=== PATIENT | male | born 1945 | race Caucasian/White ===

== ENCOUNTER 2018-01-17 15:33 | Inpatient (IN) | payer OTHER ==
[~2018-01-17] VITALS: Ht 182.9 cm; Wt 100.4 kg
[2018-01-17 16:03] LABS: BASO % 0.1 %; BASO ABS # 0.01 K/uL (0-0.2); EOS % 2.8 %; EOS ABS # 0.25 K/uL (0-0.5); HEMOGLOBIN 15.2 g/dL (14.0-18.0); IG# 0.02 K/uL (0.00-0.02); LYMPH % 18.8 %; LYMPH ABS # 1.71 K/uL (1.2-3.4); MEAN CELL VOLUME 93.9 fL (80-100); MEAN CORPUSCULAR HEMOGLOBIN 33.2 pg (25-34); MEAN CORPUSCULAR HGB CONC 35.3 g/dl (32-36); MEAN PLATELET VOLUME 10.5 fL (7.4-10.4); MONO % 7.7 %; NEUT % 70.4 %; NEUT ABS # 6.39 K/uL (1.4-6.5); PLATELET COUNT 214 K/uL (130-400); RED CELL DISTRIBUTION WIDTH CV 12.8 % (11.5-14.5); RED CELL DISTRIBUTION WIDTH SD 43.9 fL (36.4-46.3); WHITE BLOOD COUNT 9.08 K/uL (4.8-10.8)
--- NOTE | 2018-01-17 16:15 | DIAGNOSTIC IMAGING REPORT ---
CHEST 2 VIEWS ROUTINE CLINICAL HISTORY: palpitations COMPARISON STUDY: 06/08/2015 FINDINGS: The heart is normal in size. There is no failure. There is no focal pulmonary consolidation. There are no pleural effusions. There is a calcified granuloma within the right lung apex.[ IMPRESSION: No active disease in the chest. Electronically signed by: Ross Raymond M.D. 01/17/2018 4:14 PM Dictated Date/Time: 01/17/2018 4:13 PM
[2018-01-17] MEDS ORDERED: SODIUM CHLORIDE 0.9% 1000ML 1,000 ML IV ONE (16:19)
[2018-01-17 16:29] LABS: ALBUMIN 3.6 gm/dl (3.4-5.0); ALT/SGPT 26 U/L (12-78); AST/SGOT 23 U/L (15-37); BLOOD UREA NITROGEN 20 mg/dl (7-18); CALCIUM 8.5 mg/dl (8.5-10.1); CARBON DIOXIDE 23 mmol/L (21-32); CREATININE 1.02 mg/dl (0.60-1.40); GLUCOSE 149 mg/dl (70-99); SODIUM 139 mmol/L (136-145)
[2018-01-17 16:37] LABS: ALKALINE PHOSPHATASE 67 U/L (45-117)
[2018-01-17] MEDS ORDERED: ADENOSINE IV SOLN 3 MG/ML 2 ML VIAL IV STA (17:01)
[2018-01-17] MEDS ORDERED: DILTIAZEM BOLUS / DRIP IV STA ×2 (17:16→17:36)
[2018-01-17] MEDS ORDERED: DILTIAZEM BOLUS FROM BAG IV ONE (17:30)
[2018-01-17] MEDS ORDERED: DILTIAZEM HCL INJ 125 MG in DEXTROSE 5% 100ML IV PRN (17:30)
[2018-01-17] MEDS ORDERED: ALUMINUM/MAGNESIUM/SIMETH (MAALOX MAX) 30 ML UDC PO PRN (17:45)
[2018-01-17] MEDS ORDERED: ZOLPIDEM TARTRATE 5 MG TAB PO PRN (17:45)
[2018-01-17] MEDS ORDERED: ONDANSETRON INJ 2 MG/ML 2 ML VIAL IV PRN (17:45)
[2018-01-17] MEDS ORDERED: POLYETHYLENE (MIRALAX) 17 GM PACK PO PRN (17:45)
[2018-01-17] MEDS ORDERED: MAGNESIUM HYDROXIDE SUSP 30 ML UDC PO PRN (17:45)
[2018-01-17] MEDS ORDERED: ACETAMINOPHEN 325 MG TAB PO PRN (17:45)
[2018-01-17] MEDS ORDERED: MoRPHine SULFATE 2 MG/ML CARP IV PRN (17:45)
[2018-01-17 17:51] LABS: PTT PATIENT 28.5 SECONDS (21.0-31.0)
--- NOTE | 2018-01-17 17:54 | EMERGENCY ROOM VISIT NOTE ---
History Report prepared by Barby: Stefani Barclay Under the Supervision of: Dr. Delbert Rodriguez M.D. First contact with patient: 15:40 Chief Complaint: TACHYCARDIA Stated Complaint: PULSE 130 History of Present Illness The patient is a 72 year old male who presents to the Emergency Room with complaints of sudden tachycardia beginning at 0800 this morning. He states that his heart was racing about 130 beats per minute during triage. 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 He notes he drinks a lot of coffee and drank alcohol last night. He regularly takes Lisinopril. Source of History: patient Onset: 0800 this morning Position: chest Quality: other ("like his heart skipped a beat") Timing: other (sudden) Associated Symptoms: No fevers, No chills, No cough, No chest pain, No SOB Note: Negative recent illnesses or history of thyroid issues Review of Systems See HPI for pertinent positives and negatives. A total of ten systems were reviewed and were otherwise negative. Past Medical & Surgical Medical Problems: (1) No significant past medical history (2) Tachycardia Family History No pertinent family history Social History Smoking Status: Current Some Day Smoker Marital Status: Housing Status: lives with significant other Occupation Status: retired Physical Exam Vital Signs Date Time Temp Pulse Resp B/P (MAP) Pulse Ox O2 Delivery O2 Flow Rate FiO2 01/17/18 17:43 134 19 124/100 01/17/18 17:26 60 01/17/18 16:37 133 16 105/84 95 Room Air 01/17/18 15:58 134 17 126/84 95 Room Air 01/17/18 15:57 135 01/17/18 15:55 96 Room Air 01/17/18 15:45 96 Room Air 01/17/18 15:36 36.8 135 18 131/89 96 Room Air Physical Exam GENERAL: Awake, alert, well-appearing, in no distress HENT: Normocephalic, atraumatic. Oropharynx unremarkable. EYES: Normal conjunctiva. Sclera non-icteric. NECK: Supple. No nuchal rigidity. RESPIRATORY: Clear to auscultation. No wheezes. Normal respiratory effort. CARDIAC: Tachycardic rate. Normal rhythm. Extremities warm and well perfused. GI: Soft, non-distended. No tenderness to palpation. No rebound or guarding. No masses. RECTAL: Deferred. MUSCULOSKELETAL: Atraumatic. Chest examination reveals no tenderness. There is no CVA tenderness to palpation. LOWER EXTREMITIES: Calves are equal size bilaterally and non-tender. No edema NEURO: Normal sensorium. No sensory or motor deficits noted. No facial droop. SKIN: Warm and dry. No rash or jaundice noted. Medical Decision & Procedures ER Provider Diagnostic Interpretation: Radiology results as stated below per my review and radiologist interpretation: CHEST 2 VIEWS ROUTINE CLINICAL HISTORY: palpitations COMPARISON STUDY: 06/08/2015 FINDINGS: The heart is normal in size. There is no failure. There is no focal pulmonary consolidation. There are no pleural effusions. There is a calcified granuloma within the right lung apex.[ IMPRESSION: No active disease in the chest. Electronically signed by: Ross Raymond M.D. 01/17/2018 4:14 PM Laboratory Results 01/17/18 15:52 Red Blood Count 4.58, Mean Corpuscular Volume 93.9, Mean Corpuscular Hemoglobin 33.2, Mean Corpuscular Hemoglobin Concent 35.3, Mean Platelet Volume 10.5, Neutrophils (%) (Auto) 70.4, Lymphocytes (%) (Auto) 18.8, Monocytes (%) (Auto) 7.7, Eosinophils (%) (Auto) 2.8, Basophils (%) (Auto) 0.1, Neutrophils # (Auto) 6.39, Lymphocytes # (Auto) 1.71, Monocytes # (Auto) 0.70, Eosinophils # (Auto) 0.25, Basophils # (Auto) 0.01 01/17/18 15:52 Test 01/17/18 15:52 White Blood Count 9.08 K/uL (4.8-10.8) Red Blood Count 4.58 M/uL (4.7-6.1) Hemoglobin 15.2 g/dL (14.0-18.0) Hematocrit 43.0 % (42-52) Mean Corpuscular Volume 93.9 fL (80-100) Mean Corpuscular Hemoglobin 33.2 pg (25-34) Mean Corpuscular Hemoglobin Concent 35.3 g/dl (32-36) Platelet Count 214 K/uL (130-400) Mean Platelet Volume 10.5 fL (7.4-10.4) Neutrophils (%) (Auto) 70.4 % Lymphocytes (%) (Auto) 18.8 % Monocytes (%) (Auto) 7.7 % Eosinophils (%) (Auto) 2.8 % Basophils (%) (Auto) 0.1 % Neutrophils # (Auto) 6.39 K/uL (1.4-6.5) Lymphocytes # (Auto) 1.71 K/uL (1.2-3.4) Monocytes # (Auto) 0.70 K/uL (0.11-0.59) Eosinophils # (Auto) 0.25 K/uL (0-0.5) Basophils # (Auto) 0.01 K/uL (0-0.2) RDW Standard Deviation 43.9 fL (36.4-46.3) RDW Coefficient of Variation 12.8 % (11.5-14.5) Immature Granulocyte % (Auto) 0.2 % Immature Granulocyte # (Auto) 0.02 K/uL (0.00-0.02) D-Dimer 420 ug/L FEU (0-500) Anion Gap 10.0 mmol/L (3-11) Est Creatinine Clear Calc Drug Dose 81.6 ml/min Estimated GFR () 85.3 Estimated GFR (Non- 73.6 BUN/Creatinine Ratio 20.0 (10-20) Calcium Level 8.5 mg/dl (8.5-10.1) Magnesium Level 2.0 mg/dl (1.8-2.4) Total Bilirubin 0.4 mg/dl (0.2-1) Direct Bilirubin 0.1 mg/dl (0-0.2) Aspartate Amino Transf (AST/SGOT) 23 U/L (15-37) Alanine Aminotransferase (ALT/SGPT) 26 U/L (12-78) Alkaline Phosphatase 67 U/L (45-117) Troponin I < 0.015 ng/ml (0-0.045) Total Protein 7.0 gm/dl (6.4-8.2) Albumin 3.6 gm/dl (3.4-5.0) Thyroid Stimulating Hormone (TSH) 0.969 uIu/ml (0.300-4.500) Chemistry Specimen Hemolysis Laboratory results reviewed by me Medications Administered Medications (Trade) Dose Ordered Sig/Felipe Route Start Time Stop Time Status Last Admin Dose Admin Sodium Chloride 1,000 ml @ 999 mls/hr Q1H1M ONCE IV 01/17/18 16:19 01/17/18 17:19 DC 01/17/18 16:19 999 MLS/HR Adenosine (Adenosine Iv) 6 mg NOW STAT IV 01/17/18 17:01 01/17/18 17:02 DC 01/17/18 17:17 6 MG Diltiazem HCl (Cardizem Bolus From Bag) 5 mg NOW ONCE IV 01/17/18 17:30 01/17/18 17:31 DC 01/17/18 17:42 5 MG Diltiazem HCl 125 mg/Dextrose 125 ml @ 0 mls/hr Q0M PRN IV 01/17/18 17:30 02/16/18 17:29 01/17/18 17:39 5 MLS/HR ECG Per My Interpretation Indication: tachycardia Rate (beats per minute): 135 Rhythm: sinus tachycardia Findings: left axis deviation, other (no ST segment elevation or depression, V1 and V2 T-wave flattening) Comparison ECG Date: 11/09/15 Change: V1 and V2 T-wave flattening and tachycardia are new compared to prior ED Course 1541: The patient was evaluated in room B6. A complete history and physical exam was performed. 1619: Ordered Sodium Chloride 1000 ml @ 999 mls/hr IV 1645: Reevaluated the patient and informed of laboratory results and x-ray results. Patient continues to be symptomatic but persistently nonvariable tachycardic. 1655: Discussed the patient's case with Dr. Cordon, Cardiology. He states this is likely atrial tachycardia. He recommends adenosine or beta ervin for further evaluation. 1701: Ordered Adenosine 6 mg IV 1716: Ordered Cardizem Bolus From Bag 5 mg IV 1738: Discussed the patient's case with Dr. Castanon, [facility] Hospitalist. The patient will be evaluated for further treatment and disposition. Medical Decision Triage Nursing notes reviewed. Differential diagnosis: Etiologies such as premature contractions, electrolyte abnormality, cardiac dysrhythmia, thyroid dysfunction, pulmonary embolism, infection, gastrointestinal, as well as others were entertained. Patient presents with reported tachycardia the unit this morning. Takes blood pressure daily noted fairly consistently around 30. Was able to go on exercise and has no complaints of chest pain or shortness of breath. Did recently travel back several weeks ago from [place] via car and airplane. No leg swelling. No abdominal pain. No history of thyroid dysfunction. Does endorse a fair amount of caffeine daily. States he just that was on his heart rate was fairly consistently fast today so came in. Denies fever. Does not appear infected. No evidence of acute ischemia. Chest x-ray is normal. No evidence of thyroid dysfunction. Electrolytes okay. Negative troponin. Given recent travel d-dimer was completed and within normal limits. Appears to be a sinus tachycardia on initial EKG but not variable concern for possible underlying atrial tachycardia. Discussed with cardiology gave adenosine 6 mg which revealed an atrial flutter with block. Given some diltiazem and started on heparin for anticoagulation. Will admit for further cardiac evaluation/ consultation and rhythm conversion. Medication Reconcilliation Current Medication List: was personally reviewed by me Blood Pressure Screening Patient's blood pressure: Normal blood pressure Blood pressure disposition: Did not require urgent referral Consults Time Called: 1650 Consulting Physician: Dr. Cordon, Cardiology Returned Call: 1651 Discussed the patient's case with Dr. Cordon, Cardiology. He states this is likely atrial tachycardia. He recommends adenosine or beta ervin for further evaluation. Additional Consults: Time Called: 1720 Consulted Physician: Dr. Castanon, [facility] Hospitalist Returned Call: 2215 Additional Comments: Discussed the patient's case with Dr. Castanon, [facility] Hospitalist. The patient will be evaluated for further treatment and disposition. Impression Primary Impression: Atrial flutter Critical Care I have personally spent greater than 33 minutes of critical care time in the direct management of this patient. This includes bedside care, interpretation of diagnostic studies, and testing, discussion with consultants, patient, and family members, and other required patient management activities. This 33 minutes is in excess of all separately billable procedures. Scribe Attestation The scribe's documentation has been prepared under my direction and personally reviewed by me in its entirety. I confirm that the note above accurately reflects all work, treatment, procedures, and medical decision making performed by me. Departure Information Dispostion Being Evaluated By Hospitalist (Dr. Castanon, [facility] Hospitalist) Referrals Cam Connor MD (PCP) Patient Instructions My [facility] Problem Qualifiers Primary Impression: Atrial flutter Atrial flutter type: unspecified Qualified Codes: I48.92 - Unspecified atrial flutter
[2018-01-17] MEDS ORDERED: PATIENT'S ALLERGY INFO NEEDS ENTERED SCH (18:00)
[2018-01-17] MEDS ORDERED: LISI-729 PO (18:00)
[2018-01-17] MEDS ORDERED: HEPARIN SOD (PORCINE) 1000 UNIT/ML 10 ML VIAL IV ONE (18:00)
--- NOTE | 2018-01-17 18:02 | History and Physical ---
History & Physical Date & Time of Service: Jan 17, 2018 at 17:51 Chief Complaint: Pulse 130 Primary Care Physician: Cam Connor MD History of Present Illness Source: patient, hospital records, other 72 y/o M Hx HTN. Developed a rapid HR at approximately 8am. This persisted until he eventually presented to the ER 8 hours later. An initial EKG appeared to show sinus tachycardia at a rate of 130. Adenosine was administered and atrial flutter became apparent. At no time did the pt develop CP, SOB or lightheadedness. He states that his regular HR is approximately 60. Past Medical/Surgical History HTN Family History No pertinent family history Mother at age 100, father - history of CAD Social History The pt has an alcoholic beverage daily. He states he drink plenty of coffee. He smokes 2-3 pipes or cigars weekly. He works for a [employer]. Smoking Status: Current Some Day Smoker Review of Systems Constitutional: No fever, No chills, No sweats Eyes: No worsening of vision ENT: No hearing loss, No nasal symptoms Respiratory: No cough, No wheezing Cardiovascular: + palpitations, No chest pain, No orthopnea, No PND Abdomen: No pain, No nausea, No vomiting Musculoskeletal: No joint pain Genitourinary - Male: No hematuria, No dysuria, No urinary frequency Neurologic: No memory loss, No weakness Psychiatric: No depression symptoms Endocrine: No fatigue Hematologic / Lymphatic: No abnormal bleeding/bruising Integumentary: No rash Allergic / Immunologic: No environmental allergies Physical Exam Vital Signs Date Time Temp Pulse Resp B/P (MAP) Pulse Ox O2 Delivery O2 Flow Rate FiO2 01/17/18 17:26 60 01/17/18 16:37 133 16 105/84 95 Room Air 01/17/18 15:58 134 17 126/84 95 Room Air 01/17/18 15:57 135 01/17/18 15:55 96 Room Air 01/17/18 15:45 96 Room Air 01/17/18 15:36 36.8 135 18 131/89 96 Room Air General Appearance: WD/WN, no apparent distress Head: normocephalic ENT: normal ENT inspection, pharynx normal Neck: supple, no JVD Respiratory/Chest: chest non-tender, lungs clear, normal breath sounds Cardiovascular: no gallop, no murmur, + tachycardia Abdomen/GI: normal bowel sounds, non tender, soft Back: normal inspection, no CVA tenderness Extremities/Musculoskelatal: normal inspection, no calf tenderness, normal capillary refill 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, no motor/sensory deficits, alert, oriented x 3 Skin: normal color Diagnostics Laboratory Results Results Past 24 Hours Test 01/17/18 15:52 Range/Units White Blood Count 9.08 4.8-10.8 K/uL Red Blood Count 4.58 4.7-6.1 M/uL Hemoglobin 15.2 14.0-18.0 g/dL Hematocrit 43.0 42-52 % Mean Corpuscular Volume 93.9 80-100 fL Mean Corpuscular Hemoglobin 33.2 25-34 pg Mean Corpuscular Hemoglobin Concent 35.3 32-36 g/dl Platelet Count 214 130-400 K/uL Mean Platelet Volume 10.5 7.4-10.4 fL Neutrophils (%) (Auto) 70.4 % Lymphocytes (%) (Auto) 18.8 % Monocytes (%) (Auto) 7.7 % Eosinophils (%) (Auto) 2.8 % Basophils (%) (Auto) 0.1 % Neutrophils # (Auto) 6.39 1.4-6.5 K/uL Lymphocytes # (Auto) 1.71 1.2-3.4 K/uL Monocytes # (Auto) 0.70 0.11-0.59 K/uL Eosinophils # (Auto) 0.25 0-0.5 K/uL Basophils # (Auto) 0.01 0-0.2 K/uL RDW Standard Deviation 43.9 36.4-46.3 fL RDW Coefficient of Variation 12.8 11.5-14.5 % Immature Granulocyte % (Auto) 0.2 % Immature Granulocyte # (Auto) 0.02 0.00-0.02 K/uL D-Dimer 420 0-500 ug/L FEU Sodium Level 139 136-145 mmol/L Potassium Level 4.0 3.5-5.1 mmol/L Chloride Level 105 98-107 mmol/L Carbon Dioxide Level 23 21-32 mmol/L Anion Gap 10.0 3-11 mmol/L Blood Urea Nitrogen 20 7-18 mg/dl Creatinine 1.02 0.60-1.40 mg/dl Est Creatinine Clear Calc Drug Dose 81.6 ml/min Estimated GFR () 85.3 Estimated GFR (Non- 73.6 BUN/Creatinine Ratio 20.0 10-20 Random Glucose 149 70-99 mg/dl Calcium Level 8.5 8.5-10.1 mg/dl Magnesium Level 2.0 1.8-2.4 mg/dl Total Bilirubin 0.4 0.2-1 mg/dl Direct Bilirubin 0.1 0-0.2 mg/dl Aspartate Amino Transf (AST/SGOT) 23 15-37 U/L Alanine Aminotransferase (ALT/SGPT) 26 12-78 U/L Alkaline Phosphatase 67 45-117 U/L Troponin I < 0.015 0-0.045 ng/ml Total Protein 7.0 6.4-8.2 gm/dl Albumin 3.6 3.4-5.0 gm/dl Thyroid Stimulating Hormone (TSH) 0.969 0.300-4.500 uIu/ml Chemistry Specimen Hemolysis EKG Atrial flutter observed following administration of adenosine - no evidence of ischemia Impression Assessment and Plan 72 y/o M Hx HTN. Developed a rapid HR at approximately 8am. This persisted until he eventually presented to the ER 8 hours later. An initial EKG appeared to show sinus tachycardia at a rate of 130. Adenosine was administered and atrial flutter became apparent. At no time did the pt develop CP, SOB or lightheadedness. The pt is placed on Diltiazem and Heparin. We will obtain an echo and request a cardiology consult. We have held his Lisinopril to allow for rate agents as needed. He will be kept NPO after midnight in the event that he requires AM cardioversion. Full code - Heparin prophylaxis Total time for this admit including review of labs, meds, imaging, records - discussion with pt and ER attending - 33 min Resuscitation Status VTE Prophylaxis Will order VTE Prophylaxis: Yes
[2018-01-17] MEDS: HEPARIN 25,000 UNIT/500ML D5W 500 ML IV SCH (18:03)
[2018-01-17] MEDS ORDERED: MULT-190 PO (18:11)
[2018-01-17] MEDS ORDERED: MULT-506 PO (18:12)
[2018-01-17] MEDS ORDERED: FEXO1TAB49 PO (18:13)
[2018-01-17] MEDS ORDERED: VNTHFA/IN INH (18:14)
[2018-01-17] MEDS ORDERED: FLVHFA44 INH (18:15)
[2018-01-17] MEDS ORDERED: METHPOW7 PO (18:19)
[2018-01-17 18:54] VITALS: BP 150/106; PULSE 136; TEMP 36.6; O2SAT 97; Ht 182.9 cm; Wt 100.4 kg
[2018-01-17 23:18] VITALS: BP 96/63; PULSE 65; TEMP 36.7; O2SAT 92
[2018-01-18 01:08] LABS: PTT PATIENT 86.1 SECONDS (21.0-31.0)
[2018-01-18 04:17] VITALS: BP 100/64; PULSE 84; TEMP 36.4; O2SAT 95
[2018-01-18 07:27] LABS: HEMATOCRIT 39.7 % (42-52); HEMOGLOBIN 13.8 g/dL (14.0-18.0); MEAN CORPUSCULAR HEMOGLOBIN 32.3 pg (25-34); MEAN CORPUSCULAR HGB CONC 34.8 g/dl (32-36); MEAN PLATELET VOLUME 10.5 fL (7.4-10.4); PLATELET COUNT 195 K/uL (130-400); RED CELL DISTRIBUTION WIDTH CV 12.9 % (11.5-14.5); RED CELL DISTRIBUTION WIDTH SD 43.6 fL (36.4-46.3)
[2018-01-18 07:47] LABS: PTT PATIENT 67.8 SECONDS (21.0-31.0)
[2018-01-18 07:48] VITALS: BP 113/74; PULSE 63; TEMP 36.4; O2SAT 94
--- NOTE | 2018-01-18 09:26 | ECHOCARDIOGRAM REPORT ---
*NOTICE TO RECEIVING [employer] This information is strictly Confidential and protected under [place] law. [place] law prohibits you from making any further disclosure of this information unless further disclosure is expressly permitted by the written consent of the person to whom it pertains or is authorized by law. A general authorization for the release of medical or other information is not sufficient for this purpose. Hospital accepts no responsibility if the information is made available to any other person, INCLUDING THE PATIENT. Interpretation Summary * Name: PATRICIA MEEHAN Study Date: 01/18/2018 06:34 AM BP: 100/64 mmHg * Patient Location: C.2T\S\S229\S\2 HR: 62 * : 1945 (M/d/yyyy) Gender: Male Height: 69 in * Age: 72 yrs Ethnicity: CA Weight: 221 lb * Ordering Physician: Kevyn Castanon * Referring Physician: Self, Referred * Performed By: Jg Bernal RDCS * * Reason For Study: A-flutter * BSA: 2.2 m2 * -- Conclusions -- * The left ventricle is normal in size. * There is mild concentric left ventricular hypertrophy. * Left ventricular systolic function is normal. * Ejection Fraction = 60-65%. * The left ventricular wall motion is normal. * The right ventricle is normal in size and function. * The right ventricular systolic function is normal as assessed by tricuspid annular plane systolic excursion (TAPSE) (normal >1.5 cm). * The left atrium is severely dilated. * Mild aortic regurgitation. * Mild valvular aortic stenosis. * Top normal PA Pressures * Dilated inferior vena cava with reduced collapsability with sniff indicates an elevated right atrial pressure of 15 mmHg * Dilated aortic root at 4.3 cm and ascending aorta at 4.6cm. * Diastolic dysfunction, Grade II (pseudonormalization pattern). Procedure Details * A complete two-dimensional transthoracic echocardiogram was performed (2D, M-mode, Doppler and color flow Doppler). * The study was technically adequate. Left Ventricle * The left ventricle is normal in size. * There is mild concentric left ventricular hypertrophy. * Left ventricular systolic function is normal. * Ejection Fraction = 60-65%. * The left ventricular wall motion is normal. Right Ventricle * The right ventricle is normal in size and function. * The right ventricular systolic function is normal as assessed by tricuspid annular plane systolic excursion (TAPSE) (normal >1.5 cm). Atria * The left atrium is severely dilated. * The right atrium is moderately dilated. Mitral Valve * The mitral valve leaflets appear normal. There is no evidence of stenosis, fluttering, or prolapse. * There is mild mitral regurgitation. Tricuspid Valve * The tricuspid valve is not well visualized, but is grossly normal. * There is mild tricuspid regurgitation. * Top normal PA Pressures Aortic Valve * Mild valvular aortic stenosis. * Mild aortic regurgitation. Pulmonic Valve * The pulmonic valve is not well seen, but is grossly normal. * Mild pulmonic valvular regurgitation. Great Vessels * Dilated aortic root at 4.3 cm and ascending aorta at 4.6cm. Pericardium/Pleural * There is no pericardial effusion. Great Vessels * Dilated inferior vena cava with reduced collapsability with sniff indicates an elevated right atrial pressure of 15 mmHg Left Ventricular Diastolic Function * Diastolic dysfunction, Grade II (pseudonormalization pattern). MMode 2D Measurements and Calculations IVSd 1.2 cm IVSs 1.8 cm LVIDd 4.8 cm LVIDs 2.9 cm LVPWd 1.2 cm LVPWs 1.8 cm IVS/LVPW 0.97 FS 39.5 % EDV(Teich) 109.8 ml ESV(Teich) 33.0 ml EF(Teich) 69.9 % EDV(cubed) 113.6 ml ESV(cubed) 25.1 ml EF(cubed) 77.9 % % IVS thick 60.3 % % LVPW thick 48.6 % LV mass(C)d 215.1 grams LV mass(C)dI 99.8 grams/m\S\2 LV mass(C)s 213.4 grams LV mass(C)sI 99.0 grams/m\S\2 SV(Teich) 76.8 ml SI(Teich) 35.6 ml/m\S\2 SV(cubed) 88.5 ml SI(cubed) 41.0 ml/m\S\2 EPSS 0.37 cm ACS 1.4 cm LA dimension 4.5 cm LVOT diam 2.1 cm LVOT area 3.5 cm\S\2 LVAd ap4 32.9 cm\S\2 LVLd ap4 8.9 cm EDV(MOD-sp4) 100.6 ml EDV(sp4-el) 103.5 ml LVAs ap4 16.2 cm\S\2 LVLs ap4 7.1 cm ESV(MOD-sp4) 34.0 ml ESV(sp4-el) 31.7 ml EF(MOD-sp4) 66.2 % EF(sp4-el) 69.3 % LVAd ap2 28.6 cm\S\2 LVLd ap2 8.7 cm EDV(MOD-sp2) 79.4 ml EDV(sp2-el) 80.1 ml LVAs ap2 15.3 cm\S\2 LVLs ap2 7.0 cm ESV(MOD-sp2) 28.1 ml ESV(sp2-el) 28.5 ml EF(MOD-sp2) 64.6 % EF(sp2-el) 64.4 % LVLd %diff -2.12 % EDV(MOD-bp) 90.4 ml LVLs %diff -0.91 % ESV(MOD-bp) 29.9 ml EF(MOD-bp) 66.9 % SV(MOD-sp4) 66.6 ml SI(MOD-sp4) 30.9 ml/m\S\2 SV(MOD-sp2) 51.3 ml SI(MOD-sp2) 23.8 ml/m\S\2 SV(MOD-bp) 60.5 ml SI(MOD-bp) 28.1 ml/m\S\2 SV(sp4-el) 71.8 ml SI(sp4-el) 33.3 ml/m\S\2 SV(sp2-el) 51.6 ml SI(sp2-el) 23.9 ml/m\S\2 Doppler Measurements and Calculations MV E max elbert 71.2 cm/sec MV A max elbert 31.5 cm/sec MV E/A 2.3 MV dec time 0.20 sec Ao V2 max 202.3 cm/sec Ao max PG 16.5 mmHg Ao max PG (full) 12.7 mmHg Ao V2 mean 135.2 cm/sec Ao mean PG 8.3 mmHg Ao mean PG (full) 6.4 mmHg Ao V2 VTI 39.5 cm GABRIELE(I,A) 1.9 cm\S\2 GABRIELE(I,D) 1.9 cm\S\2 GABRIELE(V,A) 1.7 cm\S\2 GABRIELE(V,D) 1.7 cm\S\2 AI max elbert 397.4 cm/sec AI max PG 63.3 mmHg AI dec slope 129.7 cm/sec\S\2 AI P1/2t 897.5 msec LV V1 max PG 3.8 mmHg LV V1 mean PG 1.8 mmHg LV V1 max 97.6 cm/sec LV V1 mean 62.0 cm/sec LV V1 VTI 20.7 cm SV(LVOT) 73.3 ml SI(LVOT) 34.0 ml/m\S\2 PA V2 max 70.4 cm/sec PA max PG 2.0 mmHg PA acc slope 528.0 cm/sec\S\2 PA acc time 0.11 sec PI end-d elbert 98.9 cm/sec TR max elbert 222.8 cm/sec PA pr(Accel) 29.0 mmHg
[2018-01-18] MEDS ORDERED: METOPROLOL SUCC 25MG EXT REL TAB PO ONE (10:14)
[2018-01-18] MEDS: HEPARIN 25,000 UNIT/500ML D5W 500 ML IV SCH (11:20)
[2018-01-18 11:55] VITALS: BP 126/84; PULSE 78; TEMP 36.9; O2SAT 94
--- NOTE | 2018-01-18 12:05 | CARDIOLOGY CONSULTATION ---
DATE OF CONSULTATION: 01/18/2018 REQUESTING PHYSICIAN: Haley Lazaro MD. REASON FOR CONSULTATION: Atrial flutter. Dear Dr. Lazaro: Thank you for requesting cardiology consultation on Zbigniew with regard to his new onset atrial flutter. As you know, he is a very pleasant 72-year-old gentleman, who is rather healthy outside of hypertension. He notes that he awoke at approximately 6 o'clock in the morning yesterday. Around 8 o'clock, he just felt a little jittery and felt like he was more aware of his heart rate. His heart rate was fast, which was unusual for him as his heart rate is usually in the 60s. He cut the grass and felt well. He came inside. His heart rate was still fixed at 130 beats per minute. He went to [facility] walk-in clinic where an EKG revealed tachycardia. In the Emergency Room, he was given IV fluids. There were no significant lab abnormalities. I was contacted by phone and suggested that this was likely either an atrial flutter or atrial tachycardia. With adenosine, there are clearly atypical flutter waves seen. He was started on heparin and a Cardizem drip. At approximately 3 o'clock in the morning, he converted to sinus rhythm without evidence of any pauses. While in flutter, he did not have any chest pain, chest pressure, chest heaviness, or shortness of breath. Denied any lightheadedness, dizziness, presyncope, or syncope. With normal activity, he feels well. In retrospect, he is unaware of having any episodes like this in the past. He does check his blood pressure approximately once a week and again notes that his heart rates are in the 60s. When he exercises, he is able to get his heart rate up into the 120s without any anginal symptoms. He describes his functional capacity as stable in the last 6 months. He lifts weights 2-3 days a week. He also walks 1-2 miles 2-3 days a week with a fair number of [place] and has no difficulty doing that. Denies any bleeding, bruising, dark stools, black stools, fevers, chills, sweats, cough, productive sputum. He is having cataract surgery at the end of January. He denies any need for colonoscopy or other invasive surgeries. The rest of review of system otherwise negative. 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 He does smoke a cigar and also uses a pipe. He did smoke cigarettes for 18 years, having stopped at the age of 37. He is . He does have 1 alcoholic beverage a day. FAMILY HISTORY: Mom at 100. Dad in his early 70s of a heart attack. ALLERGIES: NICKEL AND SULFA. PAST MEDICAL HISTORY: Hypertension, cataracts. PHYSICAL EXAMINATION: GENERAL: He is awake, alert, oriented x3. He is in no acute distress. He is a well-appearing male, looks younger than his stated age. VITAL SIGNS: His heart rate is 63, respirations 18, blood pressure 113/74, saturation 94% on room air. HEENT: Carotid upstrokes 2+. No evidence of carotid bruits. Jugular venous pressure appeared normal. Sclerae are anicteric. Hearing is normal. RESPIRATORY: Lungs are clear to auscultation bilaterally. No rales, rhonchi, or wheezing. CARDIOVASCULAR: Heart has regular rate and rhythm. No appreciable murmurs, rubs, or gallops. GASTROINTESTINAL: Abdomen is soft, nontender, nondistended. Positive bowel sounds. EXTREMITIES: No clubbing, cyanosis, or edema. PSYCHIATRIC: His affect appeared appropriate. IMAGING: Chest x-ray: No active disease. LABORATORY DATA: Hemoglobin of 13.8, with a platelet count of 195. His BMP is normal. Normal AST and ALT. His troponin was negative. His TSH is normal. His hepatitis C is negative. ECHOCARDIOGRAM: Normal biventricular size and function, severely dilated left atrium, dilated right atrium, mild aortic stenosis, mild aortic regurgitation, dilated aortic root and ascending aorta. IMPRESSION: 1. New onset atrial flutter (atypical). 2. CHADS2-VASc score of 2. 3. Normal biventricular size and function. 4. Severely dilated left atrium. 5. Mild aortic stenosis, mild aortic insufficiency, with a trileaflet valve. 6. Dilated aortic root at 4.3 cm and ascending aorta at 4.6 cm. In discussion with Zbigniew, it sounds like this was probably the first episode he has had. Given the size of his left atrium, he is at risk for having recurrent atrial arrhythmias including atrial flutter and atrial fibrillation. In light of his CHADS2-VASc score, I would recommend apixaban 5 mg b.i.d. In addition, I would start Toprol-XL 25 mg at bedtime to reduce his risk of atrial arrhythmias. I agree with holding his lisinopril. I discussed the risks and benefits of anticoagulation with him. I discussed the benefits of apixaban compared to Coumadin in detail. We discussed signs of bleeding that would warrant immediate further investigation. If he has recurrent atrial arrhythmias as an outpatient, I would consider flecainide to maintain sinus rhythm versus consideration of ablative therapy. Based on the P-wave morphology, this does not appear to be a typical atrial flutter. If we proceed with flecainide, he will need outpatient stress testing. All this was discussed with Zbigniew and his as well as Dr. Lazaro. We will arrange for a followup in the office in 10-14 days. Thank you for allowing us to participate in his care.
[2018-01-18] MEDS ORDERED: APIX1TAB3 PO (13:33)
[2018-01-18] MEDS ORDERED: TPRSR25 PO (13:33)
[2018-01-18] MEDS ORDERED: APIXABAN 5 MG TAB PO STA (13:34)
--- NOTE | 2018-01-18 13:38 | Discharge Instructions ---
Discharge Instructions Date of Service Jan 18, 2018. Admission Reason for Admission: Rapid atrial flutter Discharge Discharge Diagnosis / Problem: Rapid atrial flutter Discharge Goals Goal(s): Improve disease control, Learn about illness, Diagnostic testing, Therapeutic intervention Activity Recommendations Activity Limitations: as noted below Exercise/Sports Limitations: gradually increase as tolerated Shower/Bathe: no limitations Driving or Machine Use: no limitations . Instructions / Follow-Up Instructions / Follow-Up You were admitted with an irregular, rapid heartbeat called atrial jennyer. You were given medication to slow down the rapid rate and your heart naturally converted to a normal rhythm on its own. You were started on a blood thinner called Eliquis 5 mg twice daily to help reduce your risk of having a stroke in the setting of having atrial flutter. You were also started on a medication called Toprol XL (metoprolol succinate) which will help keep the rate of your heart low if you were to go back into the atrial flutter. This medication also lowers blood pressure and will now replace your taking lisinopril. Please follow-up with linen attendant within 2 weeks. Please follow-up with your primary care physician within 2 weeks as previously scheduled. Current Hospital Diet Patient's current hospital diet: Regular Diet Discharge Diet Recommended Diet: AHA Diet (Heart Healthy) Procedures Procedures Performed: Echocardiogram Chest x-ray Pending Studies Studies pending at discharge: no Medical Emergencies . Who to Call and When: Medical Emergencies: If at any time you feel your situation is an emergency, please call 911 immediately. . Non-Emergent Contact Non-Emergency issues call your: Primary Care Provider, [employer] Interaction Designer Call Non-Emergent contact if: you have any medication questions You have a rapid heartbeat but do not have any other symptoms-if this happens, please contact your linen attendant for further advice. If you ever have chest pain, lightheadedness, shortness of breath, weakness/ numbness/tingling, severe headache, or bleeding, you should call 911 immediately and go to the hospital. . . "Provider Documentation" section prepared by Haley Lazaro. .
--- NOTE | 2018-01-18 13:49 | Discharge Summary ---
Discharge Summary Date of Service Jan 18, 2018. Discharge Summary Admission Date: Jan 17, 2018 at 17:48 Discharge Date: Jan 18, 2018 Discharge Disposition: Home Principal Diagnosis: Rapid atrial flutter Problems/Secondary Diagnoses: HTN Extrinsic asthma Seasonal allergies Obesity, BMI 30.0 Mild aortic regurgitation. Mild valvular aortic stenosis. Dilated aortic root at 4.3 cm and ascending aorta at 4.6cm. Chronic diastolic CHF Procedures: Echocardiogram: * The left ventricle is normal in size. * There is mild concentric left ventricular hypertrophy. * Left ventricular systolic function is normal. * Ejection Fraction = 60-65%. * The left ventricular wall motion is normal. * The right ventricle is normal in size and function. * The right ventricular systolic function is normal as assessed by tricuspid annular plane systolic excursion (TAPSE) (normal >1.5 cm). * The left atrium is severely dilated. * Mild aortic regurgitation. * Mild valvular aortic stenosis. * Top normal PA Pressures * Dilated inferior vena cava with reduced collapsability with sniff indicates an elevated right atrial pressure of 15 mmHg * Dilated aortic root at 4.3 cm and ascending aorta at 4.6cm. * Diastolic dysfunction, Grade II (pseudonormalization pattern). Chest x-ray Consultations: Cardiology Medication Reconciliation New Medications: Apixaban (Eliquis) 5 Mg Tab 5 MG PO BID for 30 Days, #60 TAB Metoprolol Succinate (Metoprolol Succinate ER) 25 Mg Tabcr 25 MG PO QAM for 30 Days, #30 TAB Continued Medications: Albuterol Hfa (Ventolin Hfa) 200 Puffs/41609 Mcg Aers 2 PUFFS INH Q6H PRN for SOB/Wheezing, #1 INHALER Fexofenadine Hcl (Cris Allergy) 180 Mg Tab 180 MG PO DAILY, TAB Fluticasone Propionate (Flovent Hfa) 120 Puffs/5280 Mcg Aero 2 PUFFS INH BID, GM Methylcellulose (Laxative) (Citrucel Fiber Laxative) 1 Pow Pow 1 PKT PO DAILY Multivitamin (Multivitamin) Tab 1 TAB PO DAILY, TAB Ocuvite Preservision (Ocuvite Preservision) 1 Tab Tab 1 TAB PO DAILY, TAB Discontinued Medications: Lisinopril (Zestril) 5 Mg Tab 5 MG PO DAILY, TAB Referrals At Discharge Follow up Referrals: Regional Property Manager Referral - Within 1-2 Weeks with Don Cordon, DO Discharge Exam Patient converted to normal sinus rhythm on his own around 3:00 in the morning on the day of discharge. He was not having any further heart palpitations, no chest pain or shortness of breath. He denied headache, numbness, tingling, weakness. No evidence of bleeding. He reports no history ever of GI or bleeding, no intracranial hemorrhage history. He had a recent colonoscopy that was normal. We had a lengthy discussion about risk of stroke in the setting of atrial flutter and choices of anticoagulation. Review of Systems: Constitutional: No fatigue, No problem reported Eyes: No problem reported ENT: No problem reported Respiratory: No problem reported Cardiovascular: No problem reported Abdomen: No problem reported Musculoskeletal: No problem reported Genitourinary - Male: No problem reported Neurologic: No problem reported Psychiatric: No problem reported Endocrine: No problem reported Hematologic / Lymphatic: No abnormal bleeding/bruising, No clotting problems , No problem reported Integumentary: No bleeding Physical Exam: General Appearance: WD/WN, no apparent distress Eyes: normal inspection, PERRL, EOMI, sclerae normal ENT: hearing grossly normal, pharynx normal Neck: supple, no adenopathy, thyroid normal, no JVD, no carotid bruits, trachea midline Respiratory/Chest: lungs clear, normal breath sounds, no respiratory distress, no accessory muscle use Cardiovascular: regular rate, rhythm, no edema, no gallop, no murmur, normal peripheral pulses Abdomen / GI: normal bowel sounds, non tender, soft, no organomegaly, no pulsatile mass Extremities: normal inspection, no calf tenderness, normal capillary refill , no pedal edema, normal range of motion Neurologic/Psychiatric: adventure challenge instructor II-XII nml as tested, no motor/sensory deficits , alert, normal mood/affect, oriented x 3 Skin: normal color, warm/dry, no rash Lymphatic: no adenopathy Hospital Course This patient is a 72 y/o male with a history of HTN, seasonal allergies, and extrinsic asthma, who presented to the ER with 6 hours of a rapid HR. An initial EKG appeared to show sinus tachycardia at a rate of 130, but after discussion with heel pricker, was thought to possibly be an atrial tachycardia. Adenosine was administered and atrial flutter became apparent. At no time did the pt develop CP, SOB or lightheadedness. He was initially placed on a diltiazem drip for rate control, and a heparin drip for anticoagulation. An echocardiogram was performed which showed severely dilated left atrium as well as a dilated right atrium, mild aortic stenosis and mild aortic regurgitation, as well as grade 2 diastolic dysfunction, but with a preserved EF. He spontaneously converted to normal sinus rhythm around 3:00 in the morning on the morning after admission. Consultation was made with heel pricker and I discussed the case at length with him-he recommended starting the patient on Toprol-XL 25 mg once daily for rate control as he is at high risk for recurrent issues with atrial flutter and/or fibrillation given a severely dilated left atrium. His [id number] score was also elevated at 2 and he was recommended to start on anticoagulation. The patient is agreeable to starting Eliquis 5 mg p.o. twice daily. A lengthy discussion was had about risks and benefits of anticoagulation. He has no previous history of bleeding, coagulopathies, or thrombocytopenia. His lisinopril was discontinued to allow room to give him the rate controlling drug of metoprolol. As for his chronic diastolic CHF, he had no evidence of volume overload and diuretics are not necessary at this time. Blood pressure control will be important for this. As for his mild valvular disease, this can be followed routinely as an outpatient. The patient was stable for discharge to home. Total Time Spent: Greater than 30 minutes This includes examination of the patient, discharge planning, medication reconciliation, and communication with other providers. Discharge Instructions Please refer to the electronic Patient Visit Report (Discharge Instructions) for additional information. Follow-Up With cardiology within 2 weeks With PCP within 2 weeks Additional Copies To Cam Connor MD; Don Cordon,
[2018-01-18 14:09] VITALS: BP 126/84; PULSE 78; TEMP 36.9; O2SAT 94
[2018-01-19] MEDS ORDERED: METOPROLOL SUCC 25MG EXT REL TAB PO SCH (09:00)
[2018-01-19] MEDS ORDERED: [UNRECOGNIZED DRUG - REMARK] ONE (13:34)
== END 2018-01-18 14:47 | disposition home or self-care (01) | DRG 309 ==
LOC: C.EDB 15:34 → C.2T 17:48 → ENRESERV 18:09
PROVIDERS: ADMIT Internal Medicine; ATTEND Family Medicine
DX: I48.92 Unspecified atrial flutter (principal); I50.32 Chronic diastolic (congestive) heart failure; I10 Essential (primary) hypertension; J45.909 Unspecified asthma, uncomplicated; J30.2 Other seasonal allergic rhinitis; E66.9 Obesity, unspecified; Z68.30 Body mass index [BMI] 30.0-30.9, adult

== ENCOUNTER 2019-02-26 19:57 | Inpatient (IN) ==
--- OUTSIDE RECORDS SUMMARY | 2019-02-26 20:00 | External Medical Summary | Continuity of Care Document ---
:1945 Author Name Jolene Wakefield, Provider Address Unavailable Unavailable , Care Team Providers Name Role Phone Pulmonary, Funct Testing Unavailable [email or web address] ROMULO JAIN Unavailable Unavailable Unavailable Unavailable Unavailable Problems Reactive airway disease (493.90) (J45.909) Allergic rhinitis (477.9) (J30.9) Cough (786.2) (R05) Allergies and Adverse Reactions Sulfa Drugs (Allergy) Nickel (Allergy) Medications Ventolin HFA 108 (90 Base) MCG/ACT Inhal ation Aerosol Solution; INHALE 2 PUFFS 4 times daily as needed Refills: 0 Ibuprofen 800 MG Oral Tablet; TAKE 1 TABLET 3 TIMES DAILY NEEDED. Refills: 0 Multi-Vitamin TABS; TAKE 1 TABLET DAILY. Refills: 0 Loratadine TABS Refills: 0 Ocuvite TABS Refills: 0 Flovent HFA 110 MCG/ACT Inhalation Aerosol Refills: 0 Psyllium POWD Refills: 0 Procedures History of Surgery Vas Deferens Vasectomy Status: Completed Immunizations Immunizations not documented Social History - Smoking Status Former smoker Plan of Treatment Planned Observations Planned Goals not documented Results No Known Results Results not documented Encounters Appointment; Pulmonary, Funct Testing 13-Sep-2015 10:30 Encounter Diagnosis: Problem not documented
[2019-02-26] MEDS ORDERED: SODIUM CHLORIDE 0.9% 500 ML IV ONE (20:11)
[2019-02-26] MEDS ORDERED: METOPROLOL TARTRATE 1 MG/ML VIAL IV STA ×3 (20:11→21:31)
[2019-02-26] MEDS ORDERED: THIAMINE HCL 200 MG in SODIUM CHLORIDE 0.9% 50 ML IV STA (20:13)
[2019-02-26 20:29] LABS: Basophils # (auto) 0.02 K/uL (0-0.2); Basophils % (auto) 0.2 %; Eosinophils # (auto) 0.28 K/uL (0-0.5); Eosinophils % (auto) 3.2 %; Hematocrit (blood only) 41.5 % (42-52); Hemoglobin 14.8 g/dL (14.0-18.0); Immature Granulocytes # (auto) 0.01 K/uL (0.00-0.02); Immature Granulocytes % (auto) 0.1 %; Lymphocytes # (auto) 2.06 K/uL (1.2-3.4); Lymphocytes % (auto) 23.2 %; Mean Corpuscular Hemoglobin 33.4 pg (25-34); Mean Corpuscular Hgb Conc 35.7 g/dL (32-36); Mean Corpuscular Volume 93.7 fL (80-100); Mean Platelet Volume 10.7 fL (7.4-10.4); Monocytes # (auto) 0.78 K/uL (0.11-0.59); Monocytes % (auto) 8.8 %; Neutrophils # (auto) 5.72 K/uL (1.4-6.5); Neutrophils % (auto) 64.5 %; Platelet Count 218 K/uL (130-400); RDW Coefficient of Variation 13.2 % (11.5-14.5); RDW Standard Deviation 45.1 fL (36.4-46.3); Red Blood Count 4.43 M/uL (4.7-6.1); White Blood Count 8.87 K/uL (4.8-10.8)
[2019-02-26 20:35] LABS: Partial Thromboplastin Ratio 1.1; Partial Thromboplastin Time 30.2 Seconds (21.0-31.0)
--- NOTE | 2019-02-26 20:43 | XRay Report ---
XR chest 1V portable HISTORY: weakness COMPARISON: Chest 01/17/2018. FINDINGS: Stable calcified granuloma within the right upper lobe. Otherwise, the lungs are clear. The heart is normal in size. No pleural effusions. No pneumothorax. No evidence for pulmonary edema. IMPRESSION: No significant change compared to the prior study. No acute process. Electronically signed by: Joss Vigil M.D. 02/26/2019 8:42 PM
[2019-02-26 20:57] LABS: Alanine Aminotransferase 20 U/L (12-78); Albumin Level 3.8 gm/dl (3.4-5.0); Aspartate Aminotransferase 10 U/L (15-37); BUN Creatinine Ratio 14.6 (10-20); Blood Urea Nitrogen 16 mg/dl (7-18); Calcium 9.3 mg/dl (8.5-10.1); Carbon Dioxide 26 mmol/L (21-32); Chloride 109 mmol/L (98-107); Creatinine Clr Calc Pharmacy 75.2 ml/min; Est GFR (African American) 79.1; Est GFR (Non-African American) 68.2; Glucose 116 mg/dl (70-99); Sodium 140 mmol/L (136-145)
[2019-02-26 20:59] LABS: Prothrombin Time 10.5 Seconds (9.0-12.0)
[2019-02-26] MEDS ORDERED: SODIUM CHLORIDE 0.9% 1000ML 500 ML IV ONE (21:04)
[2019-02-26 21:08] LABS: Albumin Globulin Ratio 1.3 (0.9-2); Alkaline Phosphatase 63 U/L (45-117); Bilirubin,Total 0.3 mg/dl (0.2-1); Globulin 2.9 gm/dl (2.5-4.0); Total Protein 6.7 gm/dl (6.4-8.2); Troponin I < 0.015 ng/ml (0-0.045)
--- NOTE | 2019-02-26 21:47 | Emergency Department Note ---
Entered by Aspen Mcneil acting as a scribe for Jaxson Medina DO History of Present Illness General Chief complaint: Cardiac Assessment Stated complaint: HEART RATE OVER 126 Time Seen by Provider: 02/26/19 20:08 Source: patient Limitations: no limitations History of Present Illness Onset (ago): hour(s) 4 Location: chest Pain Consistency: + other (persistent) Current Pain Intensity: 0 Quality: + other (tachycardia ) Associated symptoms: + denies other symptoms (abdominal pain); no chest pain, no nausea/vomiting and no shortness of breath The patient is a 73 year old male who presents to the Emergency Room with complaints of persistent tachycardia that began today around 16:30, about 4 hours. He states that this began when he was walking around his yard. The patient notes that this is similar to an episode of tachycardia that occurred about a year ago. He denies any chest pain, SOB, nausea/vomiting, and abdominal pain. The patient denies any recent change in medication, missed doses in medication, recent travels, recent illness, and taking any cold medication. He states that he takes Eliquis, Lisinopril, and Metoprolol, noting that he took his Eliquis at 16:30 today. The patient reports that he smokes cigars, and he notes that he drinks alcohol daily. Home Medications Home Medications Medication Instructions Recorded Confirmed Type Eliquis 5 mg PO BID 02/26/19 02/26/19 History Ocuvite Adult 50 Plus 1 cap PO DAILY 02/26/19 02/26/19 History fexofenadine [Cris Allergy] 180 mg PO DAILY 02/26/19 02/26/19 History lisinopril 5 mg PO QAM 02/26/19 02/26/19 History methylcellulose (laxative) 2 g PO DAILY 02/26/19 02/26/19 History metoprolol succinate 37.5 mg PO QAM 02/26/19 02/26/19 History Allergies Allergy/AdvReac Type Severity Reaction Status Date / Time nickel Allergy Mild Rash Verified 02/26/19 22:06 Sulfa (Sulfonamide AdvReac Intermediate Nausea/Vomi Verified 02/26/19 22:06 Antibiotics) ting Past Med/Surg History Medical History Tachycardia Social History Preferred Language: Nepalese Communication Ability: Effective Beliefs That Will Affect Care: None Current Living Situation: Spouse Feels Safe at Home: Yes Smoking Status: Current every day smoker Tobacco Type: cigars ; Hx Alcohol Use: Yes Alcohol type: beer and wine Hx Substance Use: No Review of Systems See HPI for pertinent positives & negatives. and A total of 10 systems reviewed and were otherwise negative Physical Exam Vital Signs Vital Signs - 24 hr 02/26/19 20:00 02/26/19 20:25 02/26/19 20:41 Temperature 36.6 C Temperature Source Oral Sepsis Recent Fever Within 48 Hours No Sepsis New/Unexplained Change in Mental Status No Sepsis Action Taken by Nursing No Action Required Pulse Rate 125 H 116 H 125 H Pulse Rate [Right Finger] Respiratory Rate 18 19 Blood Pressure 135/92 107/83 126/78 Blood Pressure [Right Arm] Blood Pressure Mean 106 94 Blood Pressure Mean [Right Arm] Pulse Oximetry 96 Oxygen Delivery Method Room Air 02/26/19 20:50 02/26/19 21:01 02/26/19 21:09 Temperature Temperature Source Sepsis Recent Fever Within 48 Hours Sepsis New/Unexplained Change in Mental Status Sepsis Action Taken by Nursing Pulse Rate 125 H 125 H Pulse Rate [Right Finger] 125 H 125 H Respiratory Rate 23 20 22 Blood Pressure 102/81 Blood Pressure [Right Arm] 126/78 102/81 Blood Pressure Mean 88 Blood Pressure Mean [Right Arm] 94 88 Pulse Oximetry 96 96 Oxygen Delivery Method 02/26/19 21:10 02/26/19 21:30 02/26/19 21:31 Temperature Temperature Source Sepsis Recent Fever Within 48 Hours Sepsis New/Unexplained Change in Mental Status Sepsis Action Taken by Nursing Pulse Rate 124 H 124 H 100 H Pulse Rate [Right Finger] Respiratory Rate 20 18 Blood Pressure 102/81 107/81 Blood Pressure [Right Arm] Blood Pressure Mean 89 Blood Pressure Mean [Right Arm] Pulse Oximetry Oxygen Delivery Method 02/26/19 21:34 02/26/19 21:35 02/26/19 21:45 Temperature Temperature Source Sepsis Recent Fever Within 48 Hours Sepsis New/Unexplained Change in Mental Status Sepsis Action Taken by Nursing Pulse Rate 125 H 125 H 124 H Pulse Rate [Right Finger] 115 H Respiratory Rate 23 26 H Blood Pressure 134/78 134/78 Blood Pressure [Right Arm] 134/78 Blood Pressure Mean 96 Blood Pressure Mean [Right Arm] 96 Pulse Oximetry 95 Oxygen Delivery Method 02/26/19 22:00 02/26/19 22:01 02/26/19 22:15 Temperature Temperature Source Sepsis Recent Fever Within 48 Hours Sepsis New/Unexplained Change in Mental Status Sepsis Action Taken by Nursing Pulse Rate 124 H 124 H 124 H Pulse Rate [Right Finger] Respiratory Rate 20 19 18 Blood Pressure 109/84 Blood Pressure [Right Arm] Blood Pressure Mean 92 Blood Pressure Mean [Right Arm] Pulse Oximetry Oxygen Delivery Method 02/26/19 22:30 02/26/19 22:31 02/26/19 22:44 Temperature Temperature Source Sepsis Recent Fever Within 48 Hours Sepsis New/Unexplained Change in Mental Status Sepsis Action Taken by Nursing Pulse Rate 124 H 124 H 102 H Pulse Rate [Right Finger] 94 H Respiratory Rate 19 18 24 Blood Pressure 126/86 98/75 L Blood Pressure [Right Arm] 98/75 L Blood Pressure Mean 99 82 Blood Pressure Mean [Right Arm] 82 Pulse Oximetry Oxygen Delivery Method 02/26/19 22:49 02/26/19 23:00 Temperature Temperature Source Sepsis Recent Fever Within 48 Hours Sepsis New/Unexplained Change in Mental Status Sepsis Action Taken by Nursing Pulse Rate 100 H 95 H Pulse Rate [Right Finger] Respiratory Rate 15 24 Blood Pressure 96/75 L 104/83 Blood Pressure [Right Arm] Blood Pressure Mean 82 90 Blood Pressure Mean [Right Arm] Pulse Oximetry Oxygen Delivery Method GENERAL: Patient is awake, alert, and in no acute distress.Patient is resting comfortably and showing no signs of anxiety EYES: The conjunctivae are clear. The pupils are round and reactive. EARS, NOSE, MOUTH AND THROAT: The nose is without any evidence of any deformity. Mucous membranes are moist.Tongue is midline NECK: The neck is nontender and supple. RESPIRATORY: Normal respiratory effort is noted. There is no evidence of wheezing rhonchi or rales to auscultation. CARDIOVASCULAR: Tachycardic rate and regular rhythm noted. There no definite murmurs rubs or gallops normal S1 normal S2 GASTROINTESTINAL: The abdomen is soft. Bowel sounds are present in all quadrants. Abdomen is nontender. MUSCULOSKELETAL/EXTREMITIES: There is no evidence of gross deformity. Full range of motion is noted in the hips and shoulders. SKIN: There is no obvious evidence of any rash. There are no petechiae, pallor or cyanosis noted. NEUROLOGIC: Patient is awake alert and oriented x3. Course 2008: The patient was evaluated in room B06. A complete history and physical exam was performed. 2041: I reassessed the patient, and he was stable. 2127: I reevaluated the patient, and he was still tachycardic. 2204: I spoke with Dr. Castanon, [facility] hospitalist, about the patient's case. He will further evaluate the patient. Consultations Consultation #1: I spoke with Dr. Castanon, [facility] hospitalist, about the patient's case. He will further evaluate the patient. Time: 22:05 Administered Medications Discontinued Medications Apixaban (Eliquis) 5 mg PO BID ESTHELA Stop: 03/29/19 08:59 Last Admin: 02/27/19 09:25 Dose: 5 mg Documented by: [id number] Flecainide Acetate (Tambocor) 300 mg PO NOW ONE Stop: 02/27/19 11:31 Last Admin: 02/27/19 12:03 Dose: 300 mg Documented by: [id number] Sodium Chloride (Nss) 500 mls @ 999 mls/hr IV .Q31M ONE Stop: 02/26/19 20:41 Last Infusion: 02/26/19 20:51 Dose: 0 mls/hr Documented by: [id number] Admin: 02/26/19 20:25 Dose: 999 mls/hr Documented by: [id number] Thiamine HCl 200 mg/ Sodium (Chloride) 52 mls @ 208 mls/hr IV NOW STA Stop: 02/26/19 20:27 Last Infusion: 02/26/19 21:25 Dose: 0 mls/hr Documented by: [id number] Admin: 02/26/19 20:50 Dose: 208 mls/hr Documented by: [id number] Sodium Chloride (Nss 1000ml) 500 mls @ 999 mls/hr IV .Q31M ONE Stop: 02/26/19 21:34 Last Infusion: 02/26/19 21:37 Dose: 0 mls/hr Documented by: [id number] Admin: 02/26/19 21:10 Dose: 999 mls/hr Documented by: [id number] Diltiazem HCl 125 mg/ Dextrose 125 mls @ 2.5 mls/hr IV .Q24H ESTHELA; Protocol Stop: 03/28/19 22:14 Last Titration: 02/27/19 14:07 Dose: 0 mg/hr, 0 mls/hr Documented by: [id number] Titration: 02/27/19 12:03 Dose: 0 mg/hr, 0 mls/hr Documented by: [id number] Titration: 02/27/19 08:30 Dose: 2.5 mg/hr, 2.5 mls/hr Documented by: [id number] Titration: 02/27/19 08:05 Dose: 0 mg/hr, 0 mls/hr Documented by: [id number] Titration: 02/27/19 06:40 Dose: 2.5 mg/hr, 2.5 mls/hr Documented by: [id number] Titration: 02/27/19 06:00 Dose: 5 mg/hr, 5 mls/hr Documented by: [id number] Titration: 02/27/19 03:20 Dose: 0 mg/hr, 0 mls/hr Documented by: [id number] Titration: 02/27/19 00:45 Dose: 10 mg/hr, 10 mls/hr Documented by: [id number] Admin: 02/26/19 22:20 Dose: 5 mg/hr, 5 mls/hr Documented by: [id number] Cosigned by: [id number] Potassium Chloride/Sodium Chloride (Normal Saline W/20 Meq Kcl) 20 meq in 1,000 mls @ 80 mls/hr IV .[id number] [facility] Stop: 02/27/19 13:44 Last Infusion: 02/27/19 13:30 Dose: 0 mls/hr Documented by: [id number] Admin: 02/27/19 01:00 Dose: 80 mls/hr Documented by: [id number] Metoprolol Succinate (Toprol Xl) 37.5 mg PO QAM ESTHELA Stop: 03/29/19 08:59 Last Admin: 02/27/19 09:23 Dose: 37.5 mg Documented by: [id number] Metoprolol Tartrate (Lopressor) 5 mg IV NOW STA Stop: 02/26/19 20:12 Last Admin: 02/26/19 20:25 Dose: 5 mg Documented by: [id number] Metoprolol Tartrate (Lopressor) 5 mg IV NOW STA Stop: 02/26/19 21:05 Last Admin: 02/26/19 21:10 Dose: 5 mg Documented by: [id number] Metoprolol Tartrate (Lopressor) 5 mg IV NOW STA Stop: 02/26/19 21:32 Last Admin: 02/26/19 21:35 Dose: 5 mg Documented by: [id number] Medical Decision Making Differential Diagnosis Etiologies such as premature contractions, electrolyte abnormality, cardiac dysrhythmia, thyroid dysfunction, pulmonary embolism, infection, gastrointestinal, as well as others were entertained. Medical Records Attestation: I reviewed the patient's medical records. Home Medications Current Medication List: was personally reviewed by me Laboratory Data Attestation: I reviewed the patient's lab results. Result diagrams: 02/26/19 20:12 02/26/19 20:12 Lab Results 02/26/19 02/26/19 02/26/19 Range/Units 20:12 20:12 20:12 WBC 8.87 (4.8-10.8) K/uL RBC 4.43 L (4.7-6.1) M/uL Hgb 14.8 (14.0-18.0) g/dL Hct 41.5 L (42-52) % MCV 93.7 (80-100) fL MCH 33.4 (25-34) pg MCHC 35.7 (32-36) g/dL RDW Std Deviation 45.1 (36.4-46.3) fL RDW Coeff of Nadia 13.2 (11.5-14.5) % Plt Count 218 (130-400) K/uL MPV 10.7 H (7.4-10.4) fL Immature Gran % (Auto) 0.1 % Neut % (Auto) 64.5 % Lymph % (Auto) 23.2 % [place] % (Auto) 8.8 % Eos % (Auto) 3.2 % Baso % (Auto) 0.2 % Immature Gran # (Auto) 0.01 (0.00-0.02) K/uL Neut # (Auto) 5.72 (1.4-6.5) K/uL Lymph # (Auto) 2.06 (1.2-3.4) K/uL [place] # (Auto) 0.78 H (0.11-0.59) K/uL Eos # (Auto) 0.28 (0-0.5) K/uL Baso # (Auto) 0.02 (0-0.2) K/uL PT (9.0-12.0) Seconds INR (0.9-1.1) APTT 30.2 (21.0-31.0) Seconds PTT Ratio 1.1 Sodium 140 (136-145) mmol/L Potassium 4.0 (3.5-5.1) mmol/L Chloride 109 H (98-107) mmol/L Carbon Dioxide 26 (21-32) mmol/L Anion Gap 5.0 (3-11) BUN 16 (7-18) mg/dl Creatinine 1.08 (0.6-1.4) mg/dl Est Cr Clr Drug Dosing 75.2 ml/min Est GFR ( Amer) 79.1 Est GFR (Non-Af Amer) 68.2 BUN/Creatinine Ratio 14.6 (10-20) Glucose 116 H (70-99) mg/dl Calcium 9.3 (8.5-10.1) mg/dl Magnesium 2.0 (1.8-2.4) mg/dl Total Bilirubin 0.3 (0.2-1) mg/dl AST 10 L (15-37) U/L ALT 20 (12-78) U/L Alkaline Phosphatase 63 (45-117) U/L Troponin I < 0.015 (0-0.045) ng/ml Total Protein 6.7 (6.4-8.2) gm/dl Albumin 3.8 (3.4-5.0) gm/dl Globulin 2.9 (2.5-4.0) gm/dl Albumin/Globulin Ratio 1.3 (0.9-2) TSH 3.270 (0.300-4.500) uIu/ml 02/26/19 Range/Units 20:12 WBC (4.8-10.8) K/uL RBC (4.7-6.1) M/uL Hgb (14.0-18.0) g/dL Hct (42-52) % MCV (80-100) fL MCH (25-34) pg MCHC (32-36) g/dL RDW Std Deviation (36.4-46.3) fL RDW Coeff of Nadia (11.5-14.5) % Plt Count (130-400) K/uL MPV (7.4-10.4) fL Immature Gran % (Auto) % Neut % (Auto) % Lymph % (Auto) % [place] % (Auto) % Eos % (Auto) % Baso % (Auto) % Immature Gran # (Auto) (0.00-0.02) K/uL Neut # (Auto) (1.4-6.5) K/uL Lymph # (Auto) (1.2-3.4) K/uL [place] # (Auto) (0.11-0.59) K/uL Eos # (Auto) (0-0.5) K/uL Baso # (Auto) (0-0.2) K/uL PT 10.5 (9.0-12.0) Seconds INR 1.0 (0.9-1.1) APTT (21.0-31.0) Seconds PTT Ratio Sodium (136-145) mmol/L Potassium (3.5-5.1) mmol/L Chloride (98-107) mmol/L Carbon Dioxide (21-32) mmol/L Anion Gap (3-11) BUN (7-18) mg/dl Creatinine (0.6-1.4) mg/dl Est Cr Clr Drug Dosing ml/min Est GFR ( Amer) Est GFR (Non-Af Amer) BUN/Creatinine Ratio (10-20) Glucose (70-99) mg/dl Calcium (8.5-10.1) mg/dl Magnesium (1.8-2.4) mg/dl Total Bilirubin (0.2-1) mg/dl AST (15-37) U/L ALT (12-78) U/L Alkaline Phosphatase (45-117) U/L Troponin I (0-0.045) ng/ml Total Protein (6.4-8.2) gm/dl Albumin (3.4-5.0) gm/dl Globulin (2.5-4.0) gm/dl Albumin/Globulin Ratio (0.9-2) TSH (0.300-4.500) uIu/ml Imaging Data Radiologist's Impression: Radiology results as stated below per my review and the radiologist's interpretation: XR chest 1V portable HISTORY: weakness COMPARISON: Chest 01/17/2018. FINDINGS: Stable calcified granuloma within the right upper lobe. Otherwise, the lungs are clear. The heart is normal in size. No pleural effusions. No pneumothorax. No evidence for pulmonary edema. IMPRESSION: No significant change compared to the prior study. No acute process. Electronically signed by: Joss Vigil M.D. 02/26/2019 8:42 PM ECG Data Attestation: I personally reviewed and interpreted this ECG as follows: Indication: other (tachycardia) Rate (beats per minute): 126 Rhythm: atrial flutter Findings: + other (no acute ST segments); no PVC Comparison ECG Date: from (01/18/18) Change: the following changes noted (A-flutter replaced normal sinus rhythm) Blood Pressure Blood Pressure Findings: Elevated blood pressure Blood Pressure Disposition: further management by hospitalist VIOLA Narrative The patient is a 73-year-old male with a history of dysrhythmia who presented to the emergency department with atrial flutter. The patient presented with atrial flutter with rapid ventricular response. He was treated with IV fluid as well as IV beta-blockers. His heart rate improved only minimally. He was reevaluated multiple times. I discussed patient's laboratory and radiographic studies with him. He was also treated with IV Cardizem. Because of his continued rapid atrial flutter I discussed his case with the on-call [facility] hospitalist. They have agreed to evaluate the patient in the emergency department for further management disposition. Impression & Plan Atrial flutter with rapid ventricular response, Palpitations Critical Care Time Critical Care Time: Yes Total Critical Care Time: 45 I have personally spent greater than 45 minutes of critical care time in the direct management of this patient. This includes bedside care, interpretation of diagnostic studies, and testing, discussion with consultants, patient, and family members, and other required patient management activities. This 45 minutes is in excess of all separately billable procedures. Discharge Plan Visit Data *Final* Discharge Date/Time: 02/27/19 00:00 Chief Complaint: Cardiac Assessment Stated Complaint: HEART RATE OVER 126 ED Provider: Jaxson Medina Discharge Problem: Atrial flutter with rapid ventricular response, Palpitations Patient Disposition: Admitted As Inpatient Discharge Instructions Interventions: ED Discharge Assessment Last Done: 02/27/19 00:00 The scribe's documentation has been prepared under my direction and personally reviewed by me in its entirety. I confirm that the note above accurately reflects all work, treatment, procedures, and medical decision making performed by me.
[2019-02-26] MEDS ORDERED: dilTIAZem HCL 125 MG in DEXTROSE 5% 100 ML IV SCH (22:15)
--- NOTE | 2019-02-26 23:18 | History & Physical Report ---
Date of Service February 26, 2019 Assessment & Plan (1) Atrial flutter with rapid ventricular response: 73 yo male with a h/o atrial flutter and HTN presents in RVR. No other significant PMH. Atrial flutter RVR - Admit to telemetry - Dilt drip started in ED, continue - Consider Cardiology consult if rates are not controlled - Cont. Eliquis - Keep NPO HTN - Hold Lisinopril DVT ppx--Eliquis Code--Full (2) Palpitations: (3) HTN (hypertension): History of Present Illness Primary Care Provider: Cam Connor 73 yo male h/o HTN, atrial flutter presents in RVR. Patient states that he was doing some house work and started to feel a little off and checked his pulse which was elevated. He took his evening dose of metoprolol and the rate did not respond, so the patient decided to come to the emergency room. He denies any other significant PMH or surgeries. He denies dehydration, recent illness or heavy alcohol use. He take Eliquis daily. He denies CP, SOB, n/v/d. Allergies Allergy/AdvReac Type Severity Reaction Status Date / Time nickel Allergy Mild Rash Verified 02/26/19 22:06 Sulfa (Sulfonamide AdvReac Intermediate Nausea/Vomi Verified 02/26/19 22:06 Antibiotics) ting Home Medications Home Medications Medication Instructions Recorded Confirmed Type C,E,zinc,copper [id number] 1 cap PO DAILY 02/26/19 02/26/19 History [Ocuvite Adult 50 Plus] apixaban [Eliquis] 5 mg PO BID 02/26/19 02/26/19 History fexofenadine [Cris Allergy] 180 mg PO DAILY 02/26/19 02/26/19 History lisinopril 5 mg PO QAM 02/26/19 02/26/19 History methylcellulose (laxative) 2 g PO DAILY 02/26/19 02/26/19 History metoprolol succinate 37.5 mg PO QAM 02/26/19 02/26/19 History Past Med/Surg History Medical History Tachycardia Social History Preferred Language: Persian Communication Ability: Effective Beliefs That Will Affect Care: None Current Living Situation: Spouse Feels Safe at Home: Yes Safety Concerns: Feels Safe At This Time Smoking Status: Current every day smoker Tobacco Type: cigars ; Hx Alcohol Use: Yes Alcohol type: beer and wine Hx Substance Use: No Review of Systems Review of Systems: All systems reviewed & are unremarkable except as noted in HPI & below Physical Exam Constitutional: WD/WN, vitals as above Eyes: PERRL, conjunctivae normal, anicteric sclerae ENMT: external ear and nose normal, oropharynx normal Neck: trachea midline, no thyromegaly Respiratory: normal respiratory effort, lungs clear to auscultation Cardiovascular: Rate/Rhythm: + irregularly irregular Heart Sounds: no click, no murmur and no cardiac rub Gastrointestinal (Abdomen): normal bowel sounds, soft, nontender, no hepatosplenomegaly Musculoskeletal: no cyanosis or clubbing, extremities motor strength 5/5 Skin: no rashes, warm and dry Neurologic: PERRL, EOMI, accommodation nl, no face palsy, no dysarthria Psychiatric: A+Ox3, euthymic affect Results & Data Vital Signs (Past 12 Hours) Vital Signs Temp Pulse Pulse Resp BP BP Pulse Ox 02/26/19 22:44 94 H 18 98/75 L 02/26/19 22:31 124 H 18 02/26/19 22:30 124 H 19 126/86 02/26/19 22:15 124 H 18 02/26/19 22:01 124 H 19 02/26/19 22:00 124 H 20 109/84 02/26/19 21:45 124 H 26 H 02/26/19 21:35 125 H 134/78 02/26/19 21:34 125 H 115 H 23 134/78 134/78 95 02/26/19 21:31 100 H 18 107/81 02/26/19 21:30 124 H 20 02/26/19 21:10 124 H 102/81 02/26/19 21:09 125 H 125 H 22 102/81 102/81 96 02/26/19 21:01 125 H 20 02/26/19 20:50 125 H 23 126/78 96 02/26/19 20:41 125 H 19 126/78 02/26/19 20:25 116 H 107/83 02/26/19 20:00 36.6 C 125 H 18 135/92 96 Code Status & VTE Plan VTE Prophylaxis Plan VTE Prophylaxis will be ordered: Yes Supervising Physician Co-Signing Physician Notes Pt seen/examined with resident MD Kay Leon. Orders and plan of admission formulated with resident. 73 y/o M Hx PAF, HTN - presenting with light head and tachycardia - rapid AF confirmed on arrival to the ER. 3 doses of B ervin did not yield the desired result in the ER. OE AAO x 3 S1,2 - irr/tachy CTAB NT, ND, BS+ No CCE P: Placed on Cardizem drip and assigned to telemetry - the pt is anticoagulated with Apixaban Hold Lisinopril to allow for additional rate agents - cont AM Metoprolol PG Care Time/CCT Total # of Minutes Spent Total Time Spent with Patient: Total time spent is greater than 50% in coordination of care (as documented) at patient's floor/unit and/or counseling patient: Resident Activity Tracking Resident Involvement: Resident Care Provided Care Provided: Adult Hospital Medicine
[2019-02-27] MEDS ORDERED: NSS + 20MEQ KCL 20 MEQ/1,000 ML BAG IV SCH (01:15)
[2019-02-27 06:10] LABS: Appearance Urine Clear (Clear); Bilirubin Urine Negative (Negative); Blood Urine Negative (Negative); Color Urine Yellow; Glucose Urine UA Negative (Negative); Ketones Urine Negative (Negative); Leukocyte Esterase Urine Negative (Negative); Nitrite Urine Negative (Negative); Protein Urine Negative (Negative); Specific Gravity Urine 1.016 (1.000-1.030); Urobilinogen Urine Negative (Negative); pH Urine 5.5 (4.5-7.5)
[2019-02-27 07:28] VITALS: O2SAT 96
[2019-02-27] MEDS ORDERED: APIXABAN 5 MG TABLET PO SCH (09:00)
[2019-02-27] MEDS ORDERED: lisinopriL 5 MG TAB PO SCH ×2 (09:00)
[2019-02-27] MEDS ORDERED: METOPROLOL SUCC 25MG EXT REL TAB PO SCH (09:00)
[2019-02-27] MEDS ORDERED: FLECAINIDE ACETATE 100 MG TABLET PO ONE (11:30)
[2019-02-27 11:32] VITALS: BP 127/72; PULSE 73; TEMP 97.9
--- NOTE | 2019-02-27 11:33 | Cardiology Consultation ---
Date of Consultation February 27, 2019 Assessment & Plan (1) Atrial flutter with rapid ventricular response: While the exact atrial rhythm is difficult to discern, I do suspect he has an atrial flutter. Would agree with Dr. Swann in that the appearance of the atrial arrhythmias somewhat atypical for right-sided isthmus dependent flutter. He does have significant left atrial dilation and may be predisposed to more atypical a arrhythmias as a result. There is a possibility that he has con current atrial fibrillation, but my interpretation of his rhythm his that it is more consistent with an atrial flutter. Fortunately, he has few symptoms. Did have elevated ventricular rates. In the past he has converted on his own without any specific intervention I think there is still a good possibility that he spontaneously converts. Dr. Cano and had mentioned the possibility of using flecainide for recurrent arrhythmias. I think this is a good option. While his heart is not entirely structurally normal, he does not have evidence of ischemic heart disease or old infarct. I think we can at least try a pill in the pocket approach and see if he converts on flecainide. If he successfully converted this may be a good option for him given the infrequent nature of his symptoms. Alternatively, he could explore the option of catheter based therapy. While his flutter appears atypical on EKG, often times we will find atypical circuit despite the unusual EKG appearance. We did discuss this as an option and can discuss it further if he has recurrent episodes. In the event he does not convert spontaneously here in the hospital or with flecainide therapy we can arrange for cardioversion on Friday. He will need to continue on systemic anticoagulation indefinitely If he converts today and is otherwise feeling well he could be discharged on his typical outpatient regimen of metoprolol and apixaban. At this point I think flecainide could be used as a pill in the pocket option. This could be discussed with his primary aeronautical drafter, Dr. Cordon, on an outpatient basis. (2) Valvular heart disease: He was noted to have mild aortic stenosis and insufficiency. No significant murmur on exam. Do not believe this is related to his current admission or causing symptoms. (3) Thoracic aortic aneurysm: Thoracic aorta was measured at 4.6 cm approximately 1 year ago. He also had a dilated root at 4.3 cm. Generally we would reimage this annually. If this may have been performed as an outpatient in the results not currently available. Continued aggressive blood pressure control and use of the beta- ervin is primary therapy. History of Present Illness Reason for Consultation: Atrial flutter Requesting Physician: Bakari Attending Physician: Terrence Villegas MD History of Present Illness The patient is a 73-year-old gentleman with a history of atrial flutter who began experience some unusual symptoms yesterday while working outside. He had some difficulty characterizing the symptoms but felt a little bit off. He checked his pulse and realized that his rhythm was once again irregular and fast. He did not endorse symptoms of significant lightheadedness or dizziness. He did not have symptoms of chest discomfort chest pain. He has not noticed any breathing difficulty. Based on this abnormality presented to the hospital was discovered to have an atrial arrhythmia and associated tachycardia. He was placed on a diltiazem infusion and admitted for observation. The patient states that he is an active individual who was accustomed to lifting weights, walking regularly and playing golf. He states that when playing golf if he needs to at ascend a steep hill he will have some mild dyspnea, but this is not new or severe. With usual activity is not limited by dyspnea. He has no symptoms of exertional chest pain or chest pain at rest. He denies orthopnea or paroxysmal nocturnal dyspnea. According to the patient his he does not snore. He does not have daytime somnolence. He has not had lower extremity edema. He has otherwise been feeling well recently. Currently feeling well. No sense of palpitation. No dizziness or lightheadedn ess. No chest pain or breathing difficulty. Allergies Allergy/AdvReac Type Severity Reaction Status Date / Time nickel Allergy Mild Rash Verified 02/26/19 22:06 Sulfa (Sulfonamide AdvReac Intermediate Nausea/Vomi Verified 02/26/19 22:06 Antibiotics) ting Home Medications Home Medications Medication Instructions Recorded Confirmed Type C,E,zinc,copper [id number] 1 cap PO DAILY 02/26/19 02/26/19 History [Ocuvite Adult 50 Plus] apixaban [Eliquis] 5 mg PO BID 02/26/19 02/26/19 History fexofenadine [Cris Allergy] 180 mg PO DAILY 02/26/19 02/26/19 History lisinopril 5 mg PO QAM 02/26/19 02/26/19 History methylcellulose (laxative) 2 g PO DAILY 02/26/19 02/26/19 History metoprolol succinate 37.5 mg PO QAM 02/26/19 02/26/19 History Patient History Medical History Tachycardia Social History Preferred Language: Venezuelan Communication Ability: Effective Beliefs That Will Affect Care: None Current Living Situation: Spouse Feels Safe at Home: Yes Safety Concerns: Feels Safe At This Time Smoking Status: Current every day smoker Tobacco Type: cigars ; Hx Alcohol Use: Yes Alcohol type: beer and wine Hx Substance Use: No Review of Systems Review of Systems: All systems reviewed & are unremarkable except as noted in HPI & below No recent fevers or chills. No difficulty with bowels. Eating well. No dysphagia. Physical Exam Physical Exam: The patient is alert and oriented. Mood and affect appeared normal. He answered all questions appropriately. HEENT: Pupils are equal and reactive to light and accommodation. Extraocular movements are intact. The sclerae are anicteric. Neuro: Cranial nerves intact Neck: Patient's neck is supple. He has palpable carotid pulses bilaterally without bruits on auscultation. There is no evidence of jugular venous distention. The thyroid is not enlarged. Lungs: Clear to auscultation bilaterally. He has good air movement without use of accessory muscles. No rales wheezes or rhonchi. Cardiac: Heart demonstrates an irregular rate and rhythm. Normal S1 and S2. No murmurs on examination. Pulses: The patient has palpable radial pulses bilaterally that are equal in intensity Extremities: There was no evidence of hypoperfusion. There is no cyanosis or clubbing. There is no edema. Skin: I did not appreciate any rashes on examination today. Results & Data Vital Signs (Past 12 Hours) Vital Signs Temp Pulse Pulse Resp BP BP Pulse Ox 02/27/19 07:27 36.4 C L 78 18 101/70 96 02/27/19 06:43 66 106/68 02/27/19 06:00 78 109/66 02/27/19 03:54 36.8 C 65 16 99/69 L 95 02/27/19 02:15 113/66 02/27/19 01:43 98/65 L 02/27/19 00:45 36.6 C 87 20 122/86 96 02/26/19 23:30 90 17 95/78 L Laboratory Results Abnormal Lab Results 02/26/19 02/26/19 02/26/19 20:12 20:12 20:12 WBC 8.87 RBC 4.43 L Hgb 14.8 Hct 41.5 L MCV 93.7 MCH 33.4 MCHC 35.7 RDW Std Deviation 45.1 RDW Coeff of Nadia 13.2 Plt Count 218 MPV 10.7 H Immature Gran % (Auto) 0.1 Neut % (Auto) 64.5 Lymph % (Auto) 23.2 Winona % (Auto) 8.8 Eos % (Auto) 3.2 Baso % (Auto) 0.2 Immature Gran # (Auto) 0.01 Neut # (Auto) 5.72 Lymph # (Auto) 2.06 Winona # (Auto) 0.78 H Eos # (Auto) 0.28 Baso # (Auto) 0.02 PT INR APTT 30.2 PTT Ratio 1.1 Sodium 140 Potassium 4.0 Chloride 109 H Carbon Dioxide 26 Anion Gap 5.0 BUN 16 Creatinine 1.08 Est Cr Clr Drug Dosing 75.2 Est GFR ( Amer) 79.1 Est GFR (Non-Af Amer) 68.2 BUN/Creatinine Ratio 14.6 Glucose 116 H Calcium 9.3 Magnesium 2.0 Total Bilirubin 0.3 AST 10 L ALT 20 Alkaline Phosphatase 63 Troponin I < 0.015 Total Protein 6.7 Albumin 3.8 Globulin 2.9 Albumin/Globulin Ratio 1.3 TSH 3.270 Urine Color Urine Appearance Urine pH Ur Specific Brandon Urine Protein Urine Glucose (UA) Urine Ketones Urine Blood Urine Nitrite Urine Bilirubin Urine Urobilinogen Ur Leukocyte Esterase 02/26/19 02/27/19 20:12 05:50 WBC RBC Hgb Hct MCV MCH MCHC RDW Std Deviation RDW Coeff of Nadia Plt Count MPV Immature Gran % (Auto) Neut % (Auto) Lymph % (Auto) Winona % (Auto) Eos % (Auto) Baso % (Auto) Immature Gran # (Auto) Neut # (Auto) Lymph # (Auto) Winona # (Auto) Eos # (Auto) Baso # (Auto) PT 10.5 INR 1.0 APTT PTT Ratio Sodium Potassium Chloride Carbon Dioxide Anion Gap BUN Creatinine Est Cr Clr Drug Dosing Est GFR ( Amer) Est GFR (Non-Af Amer) BUN/Creatinine Ratio Glucose Calcium Magnesium Total Bilirubin AST ALT Alkaline Phosphatase Troponin I Total Protein Albumin Globulin Albumin/Globulin Ratio TSH Urine Color Yellow Urine Appearance Clear Urine pH 5.5 Ur Specific Brandon 1.016 Urine Protein Negative Urine Glucose (UA) Negative Urine Ketones Negative Urine Blood Negative Urine Nitrite Negative Urine Bilirubin Negative Urine Urobilinogen Negative Ur Leukocyte Esterase Negative Diagnostic Findings Echocardiogram performed 01/18/2018 revealed preserved LV systolic function. Mild LVH. Mild aortic regurgitation and stenosis, dilated aortic root and at ascending aorta, stage II diastolic dysfunction, severe left atrial dilation and moderate right atrial dilation ECG Additional Comments: I reviewed the source images of his EKGs, likely atrial flutter with rapid ventricular response PG Care Time/CCT Total # of Minutes Spent Total Time Spent with Patient: Total time spent is greater than 50% in coordination of care (as documented) at patient's floor/unit and/or counseling patient:
--- NOTE | 2019-02-27 14:41 | Discharge Summary ---
Date of Service February 27, 2019 Admission HPI Per Admitting Provider 73 yo male h/o HTN, atrial flutter presents in RVR. Patient states that he was doing some house work and started to feel a little off and checked his pulse which was elevated. He took his evening dose of metoprolol and the rate did not respond, so the patient decided to come to the emergency room. He denies any other significant PMH or surgeries. He denies dehydration, recent illness or heavy alcohol use. He take Eliquis daily. He denies CP, SOB, n/v/d. Principal Diagnosis Atrial flutter with RVR Discharge Exam Constitutional WD/WN, vitals as above Eyes EOM intact bilaterally; no conjunctival abnormality ENMT external ear and nose normal, oropharynx normal Neck trachea midline, no thyromegaly normal visual inspection Respiratory normal respiratory effort, lungs clear to auscultation no respiratory distress Cardiovascular RRR, no murmur, no edema Gastrointestinal (Abdomen) Inspection/Auscultation: abdomen normal to inspection; abdomen not distended Musculoskeletal no cyanosis or clubbing, extremities motor strength 5/5 Skin no rashes, warm and dry Neurologic moves all extremities and awake Psychiatric Orientation: alert, oriented to person and cooperative Discharge Data Allergies Allergy/AdvReac Type Severity Reaction Status Date / Time nickel Allergy Mild Rash Verified 02/26/19 22:06 Sulfa (Sulfonamide AdvReac Intermediate Nausea/Vomi Verified 02/26/19 22:06 Antibiotics) ting Consultations 02/26/19 22:05 ED Decision to Admit Stat 02/27/19 08:35 Consult Cardiology Routine Hospital Course (1) Atrial flutter with rapid ventricular response: Had a tough time titrating the diltiazem gtt as his HR went down to the 50s with a BP of 90/50 even with a rate of 2.5 mg/hr. Off dilt gtt, his HR went up to the 130-[address] Daniel on 02/27. He self-converted around noon on 02/27, literally a few minutes after taking flecainide, so the flecainide was not actually needed, though he did take it. Discharged home with follow up with Dr. Cordon for either a supply of flecainide for a "pill in pocket" approach vs. referral for EP studies and possible aflutter ablation. (2) Palpitations: (3) HTN (hypertension): Total Time Total Time Spent Total Time Spent (In Minutes): 35 Discharge Plan Discharge Items Patient Disposition: Home - Self-Care Reason For Visit: AFIB RVR Discharge Diagnosis: Atrial flutter with rapid heart rate Activity: Resume your previous activity Non-emergency contact: Primary Care Provider and Altitude Chamber Technician Call non-emergency contact if: your symptoms worsen Follow-up/Referrals: Cam Connor [Primary Care Provider] - Don Cordon, [Physician] - (Please see Dr. Cordon in a week or two.) Diet: Regular Addtl Attending Provider Instructions: Please see Dr. Cordon in a week or two. He may just give you a few flecainide to take if this occurs again. Alternately, he may like you to pursue follow up studies and consider an ablation to try to prevent further episodes from occurring. Please return to your normal home medications. Pending Studies at Discharge: No Stand-Alone Forms: My [facility] Medications and DC Order Prescriptions: Continued fexofenadine [Cris Allergy] 180 mg Tablet 180 mg PO DAILY RF: 0 lisinopril 5 mg tablet 5 mg PO QAM RF: 0 metoprolol succinate 25 mg tablet extended release 24 hr 37.5 mg PO QAM RF: 0 methylcellulose (laxative) Powder 2 g PO DAILY RF: 0 Ocuvite Adult 50 Plus 250-5-1 mg Capsule 1 cap PO DAILY RF: 0 Eliquis 5 mg tablet 5 mg PO BID RF: 0 Discharge Orders: Discharge Order (Routine); Ordered 02/27/19 Ordered By: Terrence Payne/Other Patient Handouts: AFL/Afib Admission Data Admit Date/Time: 02/26/19 23:03 Attending Provider: Terrence Villegas Admit Provider: Rajan Leon Primary Care Provider: Cam Connor Other Providers: Don Cordon ; Terrence Villegas ; Ayan Daniel Other Interventions: Discharge Summary Assessment (RN) Last Done: 02/27/19 14:12
== END 2019-02-27 15:00 | disposition home or self-care (01) | DRG 310 ==
LOC: ED 19:57 → SUATTDRO 23:03 → 2E 23:03

== ENCOUNTER 2019-04-23 10:38 | Inpatient (IN) ==
[2019-04-23 11:28] LABS: Basophils # (auto) 0.02 K/uL (0-0.2); Basophils % (auto) 0.3 %; Eosinophils # (auto) 0.19 K/uL (0-0.5); Eosinophils % (auto) 2.7 %; Hematocrit (blood only) 40.4 % (42-52); Hemoglobin 14.2 g/dL (14.0-18.0); Immature Granulocytes # (auto) 0.01 K/uL (0.00-0.02); Immature Granulocytes % (auto) 0.1 %; Lymphocytes # (auto) 1.43 K/uL (1.2-3.4); Lymphocytes % (auto) 20.1 %; Mean Corpuscular Hemoglobin 33.4 pg (25-34); Mean Corpuscular Hgb Conc 35.1 g/dL (32-36); Mean Corpuscular Volume 95.1 fL (80-100); Monocytes # (auto) 0.69 K/uL (0.11-0.59); Monocytes % (auto) 9.7 %; Neutrophils # (auto) 4.76 K/uL (1.4-6.5); Neutrophils % (auto) 67.1 %; Platelet Count 232 K/uL (130-400); RDW Coefficient of Variation 12.9 % (11.5-14.5); Red Blood Count 4.25 M/uL (4.7-6.1)
--- NOTE | 2019-04-23 11:32 | XRay Report ---
XR chest 1V portable CLINICAL HISTORY: palpitations COMPARISON STUDY: Chest radiograph February 26, 2019. FINDINGS: Lung volumes are normal. Lungs are clear. There is no pneumothorax or pleural effusion. Mil d to moderate cardiomegaly is noted. Mediastinal contours are normal. There is no evidence for pulmon edward edema. IMPRESSION: No acute cardiopulmonary findings. Mild to moderate cardiomegaly. Electronically signed by: Kyler Alvarado M.D. 04/23/2019 11:30 AM
[2019-04-23 11:38] LABS: Partial Thromboplastin Ratio 1.1; Partial Thromboplastin Time 30.1 Seconds (21.0-31.0); Prothrombin Time 10.5 Seconds (9.0-12.0)
[2019-04-23 11:49] LABS: Alanine Aminotransferase 44 U/L (12-78); Albumin Level 3.6 gm/dl (3.4-5.0); Aspartate Aminotransferase 22 U/L (15-37); BUN Creatinine Ratio 15.9 (10-20); Blood Urea Nitrogen 16 mg/dl (7-18); Calcium 8.9 mg/dl (8.5-10.1); Carbon Dioxide 27 mmol/L (21-32); Chloride 108 mmol/L (98-107); Creatinine Clr Calc Pharmacy 82.4 ml/min; Est GFR (African American) 87.8; Est GFR (Non-African American) 75.8; Glucose 101 mg/dl (70-99); Potassium 4.3 mmol/L (3.5-5.1); Sodium 140 mmol/L (136-145)
[2019-04-23 11:54] LABS: Albumin Globulin Ratio 1.2 (0.9-2); Alkaline Phosphatase 60 U/L (45-117); Bilirubin,Total 0.6 mg/dl (0.2-1); Globulin 3.1 gm/dl (2.5-4.0); Total Protein 6.7 gm/dl (6.4-8.2); Troponin I < 0.015 ng/ml (0-0.045)
[2019-04-23 12:09] LABS: Magnesium 2.1 mg/dl (1.8-2.4)
--- NOTE | 2019-04-23 14:40 | History & Physical Report ---
Date of Service April 23, 2019 Assessment & Plan (1) Atrial fibrillation with RVR: Admit to PCU on telemetry Vital signs every 4 hours Replenish electrolytes as needed TTE pending Replenish electrolytes, follow-up CBC CMP. Consider consulting cardiology in the morning after TTE is resulted. Consider consulting vascular surgery for thoracic aortic aneurysm after receiving information from TTE. Continue home medicine flecainide 50 mg p.o. twice daily, Eliquis 5 mg p.o. twice daily, lisinopril 5 mg p.o. every morning, metoprolol succinate 37.5 mg p.o. every morning Toprol troponin x3 with EKG DVT prophylaxis Eliquis 5 mg p.o. twice daily Full code Present on Admission?: Yes (2) Acute chest pain: Will check troponin x3 with EKG Continue telemetry CT of the chest for thoracic aneurysm Present on Admission?: Yes (3) Anticoagulated: Continue apixaban 5 mg twice daily Present on Admission?: Yes (4) Atrial flutter with rapid ventricular response: Continue home medicine flecainide 50 mg p.o. twice daily, lisinopril 5 mg p.o. every morning, metoprolol 37.5 mg p.o. every morning, Eliquis 5 mg p.o. twice daily. Present on Admission?: Yes (5) HTN (hypertension): Continue home medicine as above. Present on Admission?: Yes (6) Thoracic aortic aneurysm: Plan to do a CT T of the chest with contrast. Present on Admission?: Yes History of Present Illness Chief Complaint: Palpitations and chest pain Primary Care Provider: Cam Connor Patient is a 73 years old male with past medical history of thoracic aortic aneurysm, valvular heart disease, hypertension, atrial flutter with rapid ventricular response, who presents to the emergency room with complaint of palpitations. Patient went to walk-in clinic and he was sent to the emergency room for further evaluation patient reports that he has A. fib's with RVR. Patient regularly takes Eliquis 5 mg p.o. twice daily. Patient reports that he has used for approximately 1 year. Patient also reports that the past week he did not have palpitation but when he was checking his blood pressure he noticed that heart rate was significantly elevated. Patient reports episodes of chest discomfort which he describes as a tightness 2 days ago. He states he was sweating at that time. Patient also states when he exerts himself he did not develop chest pain. Last night patient reports that he was short of breath and could not lay flat. Patient reports that this lasted for several minutes and then went away. Patient denies fever, chills, headache, abdominal pain, urgency,, syncope, near syncope. Labs are reviewed: WBC 7.1, hemoglobin 14.2, hematocrit 40.4, platelets 232. PT 10.5, INR 1, APTT 30.1, sodium 140, potassium 4.3, chloride 108, BUN 16, creatinine 0.99, GFR 75.8 magnesium 2.1, troponin 0 0.015-, BNP 832, TSH 2.96. Chest x-ray shows no acute cardiopulmonary finding. Mild to moderate cardiomegaly there is no pneumothorax or pleural effusion. Decision was made to admit patient to PCU on telemetry for further evaluation and treatment of palpitations and chest pain. Allergies Allergy/AdvReac Type Severity Reaction Status Date / Time nickel Allergy Mild Rash Verified 04/23/19 11:54 Sulfa (Sulfonamide AdvReac Intermediate Nausea/Vomi Verified 04/23/19 11:54 Antibiotics) ting Home Medications Home Medications Medication Instructions Recorded Confirmed Type Eliquis 5 mg PO BID 02/26/19 04/23/19 History Ocuvite Adult 50 Plus 1 cap PO DAILY 02/26/19 04/23/19 History fexofenadine [Cris Allergy] 180 mg PO DAILY 02/26/19 04/23/19 History lisinopril 5 mg PO QAM 02/26/19 04/23/19 History methylcellulose (laxative) 2 g PO DAILY 02/26/19 04/23/19 History metoprolol succinate 37.5 mg PO QAM 02/26/19 04/23/19 History albuterol sulfate [Ventolin HFA] 1 puff INHALATION QID PRN 04/23/19 04/23/19 History flecainide 50 mg PO BID 04/23/19 04/23/19 History fluticasone propionate [Flovent 2 puff INHALATION BID 04/23/19 04/23/19 History HFA] Past Med/Surg History Medical History Atrial flutter with rapid ventricular response (Acute) HTN (hypertension) Tachycardia Thoracic aortic aneurysm Valvular heart disease Surgical History No pertinent past surgical history Family History Other No pertinent family history in first degree relatives Social History Preferred Language: Upper Sorbian Communication Ability: Effective Beliefs That Will Affect Care: None Current Living Situation: Spouse Other Information That Helps Us Care for You: No Feels Safe at Home: Yes Smoking Status: Former smoker Tobacco Type: cigars ; Do You Dip or Chew Tobacco: No ; Smoking End Date: ; Second Hand Exposure: Yes ; Tobacco Cessation Education Requested by Patient: No Hx Alcohol Use: Yes Alcohol type: beer and wine Hx Substance Use: No Review of Systems Review of Systems: All systems reviewed & are unremarkable except as noted in HPI & below Physical Exam Constitutional: WD/WN, vitals as above well developed Eyes: PERRL, conjunctivae normal, anicteric sclerae ENMT: external ear and nose normal, oropharynx normal Neck: trachea midline, no thyromegaly Respiratory: normal respiratory effort, lungs clear to auscultation Cardiovascular: Heart Sounds: normal S1, normal S2 and + murmur Vessels: dorsalis pedis pulses present Gastrointestinal (Abdomen): normal bowel sounds, soft, nontender, no hepatosplenomegaly Musculoskeletal: no cyanosis or clubbing, extremities motor strength 5/5 Skin: no rashes, warm and dry Neurologic: patellar DTR's 2+ bilat, sensation intact Psychiatric: A+Ox3, euthymic affect Lymphatic: no cervical or axillary lymphadenopathy Results & Data Vital Signs (Past 12 Hours) Vital Signs Temp Pulse Pulse Resp BP BP Pulse Ox 04/23/19 14:22 95 H 20 120/89 96 04/23/19 13:08 91 H 16 132/101 H 96 04/23/19 12:14 97 H 18 125/95 96 04/23/19 11:10 96 04/23/19 10:51 36.6 C 106 H 16 122/89 97 Code Status & VTE Plan Code Status Full code VTE Prophylaxis Plan VTE Prophylaxis will be ordered: Yes PG Care Time/CCT Total # of Minutes Spent Total Time Spent with Patient: Total time spent is greater than 50% in coordination of care (as documented) at patient's floor/unit and/or counseling patient:
--- NOTE | 2019-04-23 15:36 | Emergency Department Note ---
Entered by Stefani Barclay acting as a scribe for History of Present Illness General Chief complaint: Arrhythmia/Palpitations Time Seen by Provider: 04/23/19 11:36 Source: patient History of Present Illness Onset (ago): day(s) 2 Location: chest Pain Consistency: + intermittent (chest tightness) Quality: + other (arrhythmia) Associated symptoms: + chest pain, + shortness of breath and + other (Negative leg swelling. ) The patient is a 73 year old male who presents to the ED with complaints of arrhythmia. He was at the walk-in clinic and sent here for further evaluation. He was reported to have A. fib with RVR. He states he has had Afib for about 1 year. He reports for the past week, he has not felt palpitations but when he checks his blood pressure he noticed that his heart rate can be significantly elevated. He did have an episode of chest discomfort which she describes as a tightness 2 days ago. He states he was sweating at that time. He states when he exerts himself he does not develop chest pain. Last night, he reports his shortness of breath was so severe he could barely breathe and could not lie down . This lasted a few minutes and then went away. He states has never had anything like this in the past. Currently, he does not have SOB, chest tightness, or leg swelling. Pt is on Eliquis. Home Medications Home Medications Medication Instructions Recorded Confirmed Type Eliquis 5 mg PO BID 02/26/19 04/23/19 History Ocuvite Adult 50 Plus 1 cap PO DAILY 02/26/19 04/23/19 History fexofenadine [Cris Allergy] 180 mg PO DAILY 02/26/19 04/23/19 History lisinopril 5 mg PO QAM 02/26/19 04/23/19 History methylcellulose (laxative) 2 g PO DAILY 02/26/19 04/23/19 History metoprolol succinate 37.5 mg PO QAM 02/26/19 04/23/19 History albuterol sulfate [Ventolin HFA] 1 puff INHALATION QID PRN 04/23/19 04/23/19 History flecainide 50 mg PO BID 04/23/19 04/23/19 History fluticasone propionate [Flovent 2 puff INHALATION BID 04/23/19 04/23/19 History HFA] Allergies Allergy/AdvReac Type Severity Reaction Status Date / Time nickel Allergy Mild Rash Verified 04/23/19 11:54 Sulfa (Sulfonamide AdvReac Intermediate Nausea/Vomi Verified 04/23/19 11:54 Antibiotics) ting Past Med/Surg History Medical History Atrial flutter with rapid ventricular response (Acute) HTN (hypertension) Tachycardia Thoracic aortic aneurysm Valvular heart disease Surgical History No pertinent past surgical history Family History Other No pertinent family history in first degree relatives Social History Preferred Language: Welsh Communication Ability: Effective Beliefs That Will Affect Care: None Current Living Situation: Spouse Feels Safe at Home: Yes Smoking Status: Current every day smoker Tobacco Type: cigars ; Hx Alcohol Use: Yes Alcohol type: beer and wine Hx Substance Use: No Review of Systems See HPI for pertinent positives & negatives. and A total of 10 systems reviewed and were otherwise negative Physical Exam Vital Signs Vital Signs - 24 hr 04/23/19 10:51 04/23/19 11:10 04/23/19 12:14 Temperature 36.6 C Temperature Source Oral Pulse Rate 106 H Pulse Rate [Left Finger] 97 H Respiratory Rate 16 18 Respiratory Effort / Characteristics Non-Labored Respiratory Depth Normal Respiratory Pattern Regular Blood Pressure 122/89 Blood Pressure [Left Arm] 125/95 Blood Pressure Mean 100 Blood Pressure Mean [Left Arm] 105 Blood Pressure Position Sitting Pulse Oximetry 97 96 96 Oxygen Delivery Method Room Air Room Air Room Air Sepsis Recent Fever Within 48 Hours No Sepsis New/Unexplained Change in Mental Status No Sepsis Action Taken by Nursing No Action Required 04/23/19 13:08 04/23/19 14:22 04/23/19 15:09 Temperature Temperature Source Pulse Rate 112 H Pulse Rate [Left Finger] 91 H 95 H Respiratory Rate 16 20 18 Respiratory Effort / Characteristics Respiratory Depth Respiratory Pattern Blood Pressure 116/94 Blood Pressure [Left Arm] 132/101 H 120/89 Blood Pressure Mean Blood Pressure Mean [Left Arm] 111 99 Blood Pressure Position Pulse Oximetry 96 96 95 Oxygen Delivery Method Room Air Room Air Sepsis Recent Fever Within 48 Hours Sepsis New/Unexplained Change in Mental Status Sepsis Action Taken by Nursing Constitutional: Vital signs reviewed. Eyes: Pupils are equal round reactive to light. Conjunctiva are noninjected. ENT: Pharynx is clear without erythema or exudate. Mucous membranes are moist. Neck supple without meningeal signs. Respiratory: Clear to auscultation bilaterally. Breath sounds are equal bilaterally. Cardiovascular: Irregularly irregular rhythm, normal rate. No rubs or gallops. GI: Soft, nondistended and nontender. Bowel sounds are present. Musculoskeletal: No peripheral edema. No lower extremity tenderness. Integumentary: No cyanosis. Neurological: The patient is awake and alert. No focal deficits. Psychiatric: Normal affect. Course Course 1138: Past medical records reviewed. The patient was evaluated in room B10. A complete history and physical exam was performed. 1240: I checked on the patient at this time. His heart rate fluctuates between 80 and 120. I discussed his test results. He is agreeable to hospitalization. 1520: Discussed the patient's case with Dr. Echols, [facility] Hospitalist. The patient will be evaluated for further management. Administered Medications Medical Decision Making Differential Diagnosis Differential diagnosis: Etiologies such as unstable angina, [place], electrolyte abnormality, dysrhythmia, Afib with RVR, as well as others were entertained. Medical Records Attestation: I reviewed the patient's medical records. I did perform a limited focused review of portions of the patient's old chart on the electronic medical record. He was admitted in February for A flutter with RVR. Home Medications Current Medication List: was personally reviewed by me Laboratory Data Attestation: I reviewed the patient's lab results. Result diagrams: 04/23/19 11:16 04/23/19 11:16 Lab Results 04/23/19 04/23/19 04/23/19 Range/Units 11:16 11:16 11:16 WBC 7.10 (4.8-10.8) K/uL RBC 4.25 L (4.7-6.1) M/uL Hgb 14.2 (14.0-18.0) g/dL Hct 40.4 L (42-52) % MCV 95.1 (80-100) fL MCH 33.4 (25-34) pg MCHC 35.1 (32-36) g/dL RDW Std Deviation 45.0 (36.4-46.3) fL RDW Coeff of Nadia 12.9 (11.5-14.5) % Plt Count 232 (130-400) K/uL MPV 10.0 (7.4-10.4) fL Immature Gran % (Auto) 0.1 % Neut % (Auto) 67.1 % Lymph % (Auto) 20.1 % [place] % (Auto) 9.7 % Eos % (Auto) 2.7 % Baso % (Auto) 0.3 % Immature Gran # (Auto) 0.01 (0.00-0.02) K/uL Neut # (Auto) 4.76 (1.4-6.5) K/uL Lymph # (Auto) 1.43 (1.2-3.4) K/uL [place] # (Auto) 0.69 H (0.11-0.59) K/uL Eos # (Auto) 0.19 (0-0.5) K/uL Baso # (Auto) 0.02 (0-0.2) K/uL PT 10.5 (9.0-12.0) Seconds INR 1.0 (0.9-1.1) APTT 30.1 (21.0-31.0) Seconds PTT Ratio 1.1 Sodium 140 (136-145) mmol/L Potassium 4.3 (3.5-5.1) mmol/L Chloride 108 H (98-107) mmol/L Carbon Dioxide 27 (21-32) mmol/L Anion Gap 5.0 (3-11) BUN 16 (7-18) mg/dl Creatinine 0.99 (0.6-1.4) mg/dl Est Cr Clr Drug Dosing 82.4 ml/min Est GFR ( Amer) 87.8 Est GFR (Non-Af Amer) 75.8 BUN/Creatinine Ratio 15.9 (10-20) Glucose 101 H (70-99) mg/dl Calcium 8.9 (8.5-10.1) mg/dl Magnesium (1.8-2.4) mg/dl Total Bilirubin 0.6 (0.2-1) mg/dl AST 22 (15-37) U/L ALT 44 (12-78) U/L Alkaline Phosphatase 60 (45-117) U/L Troponin I < 0.015 (0-0.045) ng/ml Total Protein 6.7 (6.4-8.2) gm/dl Albumin 3.6 (3.4-5.0) gm/dl Globulin 3.1 (2.5-4.0) gm/dl Albumin/Globulin Ratio 1.2 (0.9-2) 04/23/19 Range/Units 11:16 WBC (4.8-10.8) K/uL RBC (4.7-6.1) M/uL Hgb (14.0-18.0) g/dL Hct (42-52) % MCV (80-100) fL MCH (25-34) pg MCHC (32-36) g/dL RDW Std Deviation (36.4-46.3) fL RDW Coeff of Nadia (11.5-14.5) % Plt Count (130-400) K/uL MPV (7.4-10.4) fL Immature Gran % (Auto) % Neut % (Auto) % Lymph % (Auto) % [place] % (Auto) % Eos % (Auto) % Baso % (Auto) % Immature Gran # (Auto) (0.00-0.02) K/uL Neut # (Auto) (1.4-6.5) K/uL Lymph # (Auto) (1.2-3.4) K/uL [place] # (Auto) (0.11-0.59) K/uL Eos # (Auto) (0-0.5) K/uL Baso # (Auto) (0-0.2) K/uL PT (9.0-12.0) Seconds INR (0.9-1.1) APTT (21.0-31.0) Seconds PTT Ratio Sodium (136-145) mmol/L Potassium (3.5-5.1) mmol/L Chloride (98-107) mmol/L Carbon Dioxide (21-32) mmol/L Anion Gap (3-11) BUN (7-18) mg/dl Creatinine (0.6-1.4) mg/dl Est Cr Clr Drug Dosing ml/min Est GFR ( Amer) Est GFR (Non-Af Amer) BUN/Creatinine Ratio (10-20) Glucose (70-99) mg/dl Calcium (8.5-10.1) mg/dl Magnesium 2.1 (1.8-2.4) mg/dl Total Bilirubin (0.2-1) mg/dl AST (15-37) U/L ALT (12-78) U/L Alkaline Phosphatase (45-117) U/L Troponin I (0-0.045) ng/ml Total Protein (6.4-8.2) gm/dl Albumin (3.4-5.0) gm/dl Globulin (2.5-4.0) gm/dl Albumin/Globulin Ratio (0.9-2) Imaging Data Radiologist's Impression: Radiology results as stated below per my review and the radiologist's interpretation: XR chest 1V portable CLINICAL HISTORY: palpitations COMPARISON STUDY: Chest radiograph February 26, 2019. FINDINGS: Lung volumes are normal. Lungs are clear. There is no pneumothorax or pleural effusion. Mild to moderate cardiomegaly is noted. Mediastinal contours are normal. There is no evidence for pulmonary edema. IMPRESSION: No acute cardiopulmonary findings. Mild to moderate cardiomegaly. Electronically signed by: Kyler Alvarado M.D. 04/23/2019 11:30 AM ECG Data Attestation: I personally reviewed and interpreted this ECG as follows: Indication: + other (chest discomfort ) Rate (beats per minute): 126 Rhythm: + atrial fibrillation ECG [place]: + Left axis deviation ECG Findings: + Other (nonspecific ST changes, QRS is 92); no PVCs Blood Pressure Blood Pressure Findings: Elevated blood pressure Blood Pressure Disposition: further management by hospitalist [facility] Narrative I did evaluate the patient as noted above. The patient is presenting with intermittent tachycardia. He also developed an episode of chest tightness as well as an episode of severe shortness of breath. I do not suspect PE as the patient has been taking Eliquis without missing any doses. I am concerned about possible CAD. IV access was established. The patient was placed on a continuous personnel monitor. Cardiac monitoring: Indication: Tachycardia Rate and rhythm: Atrial fibrillation with intermittent RVR. Maximal heart rate is 136. Average is 105. I did order and personally review the patient's 12-lead EKG as described above. He has atrial fibrillation with RVR. I did order and personally reviewed the images of the patient's chest x-ray as described above. There is no evidence of acute cardiopulmonary process. I did order and review the patient's blood work as noted in the electronic medical record. CBC and electrolytes are unremarkable. Troponin is negative. I did discuss the test results with the patient. I did recommend hospitalization for repeat cardiac biomarkers and further evaluation. I did discuss the case with the hospitalist and ed case manager. Impression & Plan Atrial fibrillation with RVR, Acute chest pain, Anticoagulated Discharge Plan Visit Data Chief Complaint: Arrhythmia/Palpitations ED Provider: Zbigniew Velazquez Discharge Problem: Atrial fibrillation with RVR, Acute chest pain, Anticoagulated Patient Disposition: Being Evaluated by Hospitalist Discharge Instructions Interventions: ED Discharge Assessment Last Done: 04/23/19 15:09 The scribe's documentation has been prepared under my direction and personally reviewed by me in its entirety. I confirm that the note above accurately reflects all work, treatment, procedures, and medical decision making performed by me.
[2019-04-23] MEDS ORDERED: ACETAMINOPHEN 325 MG TAB PO PRN (15:40)
[2019-04-23] MEDS ORDERED: ALUMINUM/MAGNESIUM SUSP 30 ML UDC PO PRN (15:40)
[2019-04-23] MEDS ORDERED: POLYETHYLENE (MIRALAX) 17 GM PACK PO PRN (15:40)
[2019-04-23] MEDS ORDERED: ALBUTEROL HFA 8 GM INHALER INH PRN (15:40)
[2019-04-23] MEDS ORDERED: ZOLPIDEM TARTRATE 5 MG TAB PO PRN (15:40)
[2019-04-23] MEDS ORDERED: MAGNESIUM HYDROXIDE SUSP 30 ML UDC PO PRN (15:40)
[2019-04-23 16:33] LABS: Thyroid Stimulating Hormone 2.96 uIu/ml (0.300-4.500)
[2019-04-23] MEDS: ASPIRIN 81 MG ECTAB PO SCH (16:43)
[2019-04-23] MEDS: lisinopriL 5 MG TAB PO SCH (16:43)
[2019-04-23] MEDS: METOPROLOL SUCC 25MG EXT REL TAB PO SCH (16:44)
[2019-04-23] MEDS: FLECAINIDE ACETATE 100 MG TABLET PO SCH (20:34)
[2019-04-23] MEDS: APIXABAN 5 MG TABLET PO SCH (20:36)
[2019-04-23] MEDS: FLUTICASONE HFA 110MCG INHALER INH SCH (20:38)
[2019-04-23] MEDS ORDERED: OPTIRAY 320 125ml IV PRN (23:46)
--- NOTE | 2019-04-24 06:01 | CT Scan Report ---
Study: CT angiogram the chest. HISTORY: Aneurysm. COMPARISON: None. FINDINGS: Atherosclerotic change and ectasia thoracic aorta. Mild aneurysmal dilatation of the proxim al ascending thoracic aorta. This has a 4.4 cm in maximum dimension. No significant hilar or mediastinal adenopathy. Lungs are considered grossly clear. IMPRESSION: 1. Generalized atherosclerotic change and ectasia of the thoracic aorta. 2. Mild aneurysmal dilatation of the proximal ascending aorta at 4.4 cm. Electronically signed by: Marco Soto M.D. 04/24/2019 6:00 AM
[2019-04-24 06:13] LABS: Albumin Level 3.3 gm/dl (3.4-5.0); BUN Creatinine Ratio 17.1 (10-20); Calcium 8.9 mg/dl (8.5-10.1); Creatinine Clr Calc Pharmacy 76.2 ml/min; Potassium 4.1 mmol/L (3.5-5.1)
[2019-04-24 06:16] LABS: Albumin Globulin Ratio 1.1 (0.9-2); Bilirubin,Total 0.7 mg/dl (0.2-1); Globulin 2.9 gm/dl (2.5-4.0); Total Protein 6.2 gm/dl (6.4-8.2)
[2019-04-24 06:26] LABS: INR 1.1 (0.9-1.1); Partial Thromboplastin Ratio 1.1; Partial Thromboplastin Time 30.2 Seconds (21.0-31.0); Prothrombin Time 10.9 Seconds (9.0-12.0)
[2019-04-24 07:18] LABS: Estimated Average Glucose 128 mg/dl; Hemoglobin A1C 6.1 % (4.5-5.6)
[2019-04-24] MEDS: lisinopriL 5 MG TAB PO SCH (07:45)
[2019-04-24] MEDS: ASPIRIN 81 MG ECTAB PO SCH (07:45)
[2019-04-24] MEDS: METOPROLOL SUCC 25MG EXT REL TAB PO SCH (07:45)
[2019-04-24] MEDS: FLECAINIDE ACETATE 100 MG TABLET PO SCH (07:45)
[2019-04-24] MEDS: FLUTICASONE HFA 110MCG INHALER INH SCH (07:46)
[2019-04-24] MEDS: APIXABAN 5 MG TABLET PO SCH (07:46)
--- NOTE | 2019-04-24 08:24 | Cardiology Consultation ---
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 He is anticoagulated which he should be, he is on low-dose metoprolol succinate and I would increase that. I am going to increase him to 100 mg daily. If his rate is under control (and overall it is not under bad control anyhow) then there is no advantage in trying to maintain sinus rhythm. We could maintain sinus with flecainide but since he is asymptomatic and may feel well with better rate control my approach would be rate and not rhythm control. Another instance he is here and he is already on flecainide at a low dose I think would be prudent to put him on flecainide 100 mg twice a day, but perhaps not send him home on it. We have at least tell if it would work to convert the rhythm and whether there is any toxicity in case it is started as an outpatient. (2) Anticoagulated: He should remain on anticoagulation and he is on Eliquis and appropriate dose. (3) SOB (shortness of breath): He had some shortness of breath and orthopnea as outpatient but the reason is not clear, I would probably not pursue further. (4) Acute chest pain: He had some exertional chest discomfort, I would not be surprised if he had coronary disease despite his normal stress test however with negative enzymes, and negative stress echo a month ago and no clear indication for it I would not pursue a catheterization. With his aortic atherosclerosis I would probably start him on statin therapy, I am not sure about aspirin, I do not think there is good data but I probably would not since he is on an anticoagulant. (5) Thoracic aortic aneurysm: History of Present Illness Reason for Consultation: Atrial arrhythmia Attending Physician: Shun Noguera MD History of Present Illness This is a 73-year-old male with atrial flutter initially occurring about 1 year ago, he was recently hospitalized February 27, 2019 with atrial flutter with a rapid heart rate. The flutter may be somewhat atypical. He is very active, and at that time had no difficulties with activity. He was treated with flecainide although he converted simultaneously with taking the pill therefore was probably not a flecainide response. He was therefore sent home with follow-up with Dr. Cordon. Per his records he was started on "pill in the pocket" flecainide at 200 mg as needed, when he noticed his high heart rate about a week ago he took 200 mg daily for 4 days and then ran out, subsequently was started on flecainide 50 mg twice a day so he is only been on that for a few days and he is on low- dose metoprolol succinate at 50 mg daily as well as apixaban 5 mg twice daily. He also had a stress echo performed about a month ago, it sounds as though he went through 3 stages and had no evidence of ischemia, I believe he was in sinus rhythm at the time however. He presents now with no clear symptoms of his arrhythmia (he has not had much in way symptoms before) but noted that his heart rate was elevated when he checked his blood pressure. He first noticed this about 1 week prior to presentation. He therefore presented to the emergency room on April 23, 2019, in part because he had an episode of chest discomfort several days prior to presentation. He also had severe shortness of breath and orthopnea but only lasted a few minutes occurring the evening of presentation. In the emergency room he was noted to be in what is probably atrial flutter due to the regularity although not a pattern of typical atrial flutter and there is some irregularity so it may be a somewhat regular form of atrial fibrillation. The heart rate was 126 bpm. This morning his heart rate is 97 bpm. Cardiac enzymes were drawn, troponin is undetectable x3. BNP was not elevated nor did his chest x-ray suggest heart failure. Of note a CT angiogram did show atherosclerotic changes in his thoracic aorta and mild aneurysmal dilatation of the ascending aorta to 4.4 cm. This morning he feels well. He has no complaints, he is on a lower dose of metoprolol evidently than he was as an outpatient. Allergies Allergy/AdvReac Type Severity Reaction Status Date / Time nickel Allergy Mild Rash Verified 04/23/19 11:54 Sulfa (Sulfonamide AdvReac Intermediate Nausea/Vomi Verified 04/23/19 11:54 Antibiotics) ting Home Medications Home Medications Medication Instructions Recorded Confirmed Type Eliquis 5 mg PO BID 02/26/19 04/23/19 History Ocuvite Adult 50 Plus 1 cap PO DAILY 02/26/19 04/23/19 History fexofenadine [Cris Allergy] 180 mg PO DAILY 02/26/19 04/23/19 History methylcellulose (laxative) 2 g PO DAILY 02/26/19 04/23/19 History Flovent HFA 2 puff INHALATION BID 04/23/19 04/23/19 History albuterol sulfate [Ventolin HFA] 1 puff INHALATION QID PRN 04/23/19 04/23/19 History flecainide 100 mg PO BID #0 tab 04/24/19 04/23/19 Rx metoprolol succinate 100 mg PO DAILY #30 tab 04/24/19 Rx Patient History Medical History Atrial flutter with rapid ventricular response (Acute) HTN (hypertension) Tachycardia Thoracic aortic aneurysm Valvular heart disease Surgical History No pertinent past surgical history Family History Other No pertinent family history in first degree relatives Social History Preferred Language: Icelandic Communication Ability: Effective Beliefs That Will Affect Care: None Current Living Situation: Spouse Feels Safe at Home: Yes Smoking Status: Former smoker Tobacco Type: cigars ; Second Hand Exposure: Yes ; Hx Alcohol Use: Yes Alcohol type: beer and wine Hx Substance Use: No Review of Systems Review of Systems: All systems reviewed & are unremarkable except as noted in HPI & below Physical Exam Physical Exam: Constitutional: Alert, cooperative and in no distress. HEENT: Unremarkable Neck: No jugular venous distention, carotid pulses are irregular but otherwise normal and equal bilaterally without bruits. Pulmonary: Clear to auscultation bilaterally. Cardiac: Irregular rhythm with no murmur, gallop or rub. Abdomen: Soft, nontender with normal bowel sounds. Extremities: No edema. Distal pulses intact. Neurologic: No focal findings. Gait is steady. Skin: No rash, ecchymoses or petechiae. Results & Data Vital Signs (Past 12 Hours) Vital Signs Temp Pulse Resp BP BP Pulse Ox 04/24/19 07:03 36.6 C 88 20 120/89 96 04/24/19 03:35 36.4 C L 95 H 20 103/71 97 Laboratory Results Abnormal lab results 04/24/19 04/24/19 Range/Units 05:16 05:16 Glucose 101 H (70-99) mg/dl Hemoglobin A1c 6.1 H (4.5-5.6) % Total Protein 6.2 L (6.4-8.2) gm/dl Albumin 3.3 L (3.4-5.0) gm/dl Diagnostic Findings Electrocardiogram: His electrocardiogram shows atrial fibrillation or atrial flutter with a rapid heart rate, on admission his heart rate was 126 and somewhat regular however there is enough irregularity and no clear atrial activity that I think this is atrial fibrillation, a subsequent electrocardiogram shows atrial fibrillation rate of 97 bpm. Telemetry: Atrial fibrillation, heart rate somewhat elevated at times but overall reasonably well controlled averaging around 100 visually PG Care Time/CCT Total # of Minutes Spent Total Time Spent with Patient: Total time spent is greater than 50% in coordination of care (as documented) at patient's floor/unit and/or counseling patient:
[2019-04-24] MEDS ORDERED: METHYLCELLULOSE POWDER 454 GM JAR PO SCH (09:00)
[2019-04-24] MEDS ORDERED: CEROVITE ADV FORMULA TAB PO SCH (09:00)
[2019-04-24] MEDS ORDERED: FLECAINIDE ACETATE 100 MG TABLET PO ONE (09:30)
[2019-04-24] MEDS ORDERED: METOPROLOL SUCC 25MG EXT REL TAB PO ONE (09:30)
--- NOTE | 2019-04-24 16:48 | Discharge Summary ---
Date of Service April 24, 2019 Admission HPI Per Admitting Provider Patient is a 73 years old male with past medical history of thoracic aortic aneurysm, valvular heart disease, hypertension, atrial flutter with rapid ventricular response, who presents to the emergency room with complaint of palpitations. Patient went to walk-in clinic and he was sent to the emergency room for further evaluation patient reports that he has A. fib's with RVR. Patient regularly takes Eliquis 5 mg p.o. twice daily. Patient reports that he has used for approximately 1 year. Patient also reports that the past week he did not have palpitation but when he was checking his blood pressure he noticed that heart rate was significantly elevated. Patient reports episodes of chest discomfort which he describes as a tightness 2 days ago. He states he was sweating at that time. Patient also states when he exerts himself he did not develop chest pain. Last night patient reports that he was short of breath and could not lay flat. Patient reports that this lasted for several minutes and then went away. Patient denies fever, chills, headache, abdominal pain, urgency,, syncope, near syncope. Labs are reviewed: WBC 7.1, hemoglobin 14.2, hematocrit 40.4, platelets 232. PT 10.5, INR 1, APTT 30.1, sodium 140, potassium 4.3, chloride 108, BUN 16, creatinine 0.99, GFR 75.8 magnesium 2.1, troponin 0 0.015-, BNP 832, TSH 2.96. Chest x-ray shows no acute cardiopulmonary finding. Mild to moderate cardiomegaly there is no pneumothorax or pleural effusion. Decision was made to admit patient to PCU on telemetry for further evaluation and treatment of palpitations and chest pain. Admission Exam Per Admitting Provider Constitutional: WD/WN, vitals as above well developed Eyes: PERRL, conjunctivae normal, anicteric sclerae ENMT: external ear and nose normal, oropharynx normal Neck: trachea midline, no thyromegaly Respiratory: normal respiratory effort, lungs clear to auscultation Cardiovascular: Heart Sounds: normal S1, normal S2 and + murmur Vessels: dorsalis pedis pulses present Gastrointestinal (Abdomen): normal bowel sounds, soft, nontender, no hepatosplenomegaly Musculoskeletal: no cyanosis or clubbing, extremities motor strength 5/5 Skin: no rashes, warm and dry Neurologic: patellar DTR's 2+ bilat, sensation intact Psychiatric: A+Ox3, euthymic affect Lymphatic: no cervical or axillary lymphadenopathy Principal Diagnosis Atrial fibrillation with rapid ventricular rate (previously known) Elevated HbA1C Discharge Exam Constitutional WD/WN, vitals as above ENMT external ear and nose normal, oropharynx normal Neck trachea midline, no thyromegaly Respiratory normal respiratory effort, lungs clear to auscultation Cardiovascular Rate/Rhythm: + irregularly irregular Heart Sounds: normal S1 and normal S2; no murmur Vessels: dorsalis pedis pulses present Gastrointestinal (Abdomen) normal bowel sounds, soft, nontender, no hepatosplenomegaly Musculoskeletal no cyanosis or clubbing, extremities motor strength 5/5 Skin no rashes, warm and dry Neurologic patellar DTR's 2+ bilat, sensation intact Psychiatric A+Ox3, euthymic affect Lymphatic no cervical or axillary lymphadenopathy Discharge Data Allergies Allergy/AdvReac Type Severity Reaction Status Date / Time nickel Allergy Mild Rash Verified 04/23/19 11:54 Sulfa (Sulfonamide AdvReac Intermediate Nausea/Vomi Verified 04/23/19 11:54 Antibiotics) ting Consultations 04/23/19 12:54 ED Decision to Admit Stat 04/24/19 07:29 Consult Cardiology Routine Ordered Studies 04/23/19 23:26 CT angio chest w con Urgent Hospital Course (1) Atrial fibrillation with RVR: Mr. Rae is a 73-year-old male who was admitted overnight to [facility] from April 23 to 2018 due to chest tightness, shortness of breath and a sweating episode. Serial cardiac enzymes were normal. He was diagnosed with atrial fibrillation/flutter with rapid ventricular rate, previously known paroxysmally and already anticoagulated on Eliquis. He was reviewed by the on-call engineering tech, Dr Chavira, recommended increasing flecainide and metoprolol. His average heart rate improved to 80 bpm and he was asymptomatic at this rate. He remains in atrial fibrillation. He will follow- up with his regular stained glass artist Dr Cordon in the next 2 weeks after discharge. Lisinopril was discontinued due to low normal blood pressures with up titration of his right and rhythm controlling cardiac medications as above. He will follow-up with his primary care doctor and if blood pressure is elevated/stable this can likely be restarted. There was some concern that his chest pain was due to to his thoracic aneurysm however this was stable on imaging from the previous year. (2) Atrial flutter with rapid ventricular response: (3) Acute chest pain: (4) HTN (hypertension): (5) Thoracic aortic aneurysm: Total Time Total Time Spent Total Time Spent (In Minutes): 40 Total Time Includes: Examination of the Patient, Discharge Planning, Medication Reconciliation and Communication With Other Providers (Dr Chavira) Discharge Plan Discharge Items Patient Disposition: Home - Self-Care Reason For Visit: CHEST PAIN,POSSIBLE CORONARY SY Discharge Diagnosis: Atrial fibrillation with rapid ventricular rate (previously known) At risk for diabetes (elevated HbA1C) Activity: As commented below Lifting: Gradually increase as tolerated Exercise/Sports: Gradually increase as tolerated 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 Heart enzymes were normal therefore this was not a heart attack. You were reviewed by the individual pension consultant stained glass artist Dr Chavira and recommended increasing your flecainide and metoprolol (see doses prescribed below). Please follow up with you usual stained glass artist Dr Cordon in the next 2 weeks after discharge. Recommend discontinuing lisinopril while on these higher doses to avoid a low blood pressure (hypotension). Please follow up with your PCP within the next week regarding this. Pending Studies at Discharge: No Stand-Alone Forms: My [facility], Smoking Cessation Medications and DC Order Prescriptions: New metoprolol succinate 100 mg tablet extended release 24 hr 100 mg PO DAILY Qty: 30 RF: 0 Continued fexofenadine [Cris Allergy] 180 mg Tablet 180 mg PO DAILY RF: 0 methylcellulose (laxative) Powder 2 g PO DAILY RF: 0 Ocuvite Adult 50 Plus 250-5-1 mg Capsule 1 cap PO DAILY RF: 0 Eliquis 5 mg tablet 5 mg PO BID RF: 0 albuterol sulfate [Ventolin HFA] 90 mcg/actuation HFA aerosol inhaler 1 puff INHALATION QID PRN (Reason: Wheezing) RF: 0 Flovent HFA 110 mcg/actuation HFA aerosol inhaler 2 puff INHALATION BID RF: 0 Changed flecainide 50 mg tablet 100 mg PO BID Qty: 0 RF: 0 Discontinued lisinopril 5 mg tablet 5 mg PO QAM RF: 0 metoprolol succinate 25 mg tablet extended release 24 hr 37.5 mg PO QAM RF: 0 Discharge Orders: Discharge Order (Routine); Ordered 04/24/19 Ordered By: Shun Payne/Other Patient Handouts: Prediabetes, Diabetes Healthy Meals, Diabetes Exercise Benefits, A1C Admission Data Admit Date/Time: 04/23/19 14:39 Attending Provider: Shun Noguera Admit Provider: Montserrat Echols Primary Care Provider: Cam Connor Other Providers: Montserrat Echols ; Don Cordon Other Interventions: Discharge Summary Assessment (RN) Last Done: 04/24/19 16:53 DC Date/Time DO NOT enter until pt leaves facility: 04/24/19 17:33
[2019-04-24] MEDS ORDERED: FLECAINIDE ACETATE 100 MG TABLET PO SCH (21:00)
[2019-04-25] MEDS ORDERED: METOPROLOL SUCC 50MG EXT REL TAB PO SCH (09:00)
== END 2019-04-24 17:33 | disposition home or self-care (01) | DRG 310 ==
LOC: ED 10:38 → 2E 14:39 → SUATTDRO 14:39 → 2E 15:09

== ENCOUNTER 2019-10-08 11:03 | Observation (INO) ==
--- NOTE | 2019-10-08 11:59 | Pre Anesthesia Assessment ---
Date of Service October 08, 2019 Pre Sedation Assessment Vital Signs Pulse Resp BP Pulse Ox 10/08/19 11:20 140 H 20 147/98 H 97 Cardiovascular + irregularly irregular Respiratory + respiratory effort normal Pre-Sedation Airway Assessment Smoking Status: Former smoker Hx Sleep Apnea: No Short, Thick Neck: No Thyromental Distance: > or= 3.5 Finger Breadths Oral Cavity: + WNL Mallampati Class: II ASA: ASA2 NPO Status Date of Last Intake of Fluids: 10/08/19 Time of Last Intake of Fluids: 06:00 Date of Last Intake of Solid Food: 10/07/19 Time of Last Intake of Solid Foods: 21:00 Procedure Planning Contraindications for Sedation: none Current Medications Reviewed: Yes Notes The planned sedation has been discussed with the patient. Informed Consent was obtained. I have identified the patient, determined the appropriateness of sedation and have assessed the patient immediately prior to the procedure. All medicine(s) and interventions are by my order.
--- NOTE | 2019-10-08 12:00 | History & Physical Bridge Note ---
Date of Service October 08, 2019 History & Physical Bridge Note I have examined the patient, reviewed the History & Physical and in the interval since the performance of the History & Physical I have noted the following changes of clinical significance: no changes noted
[2019-10-08] MEDS ORDERED: MIDAZOLAM HCL 5 MG/ML 1 ML VIAL ONE ×2 (12:05→13:38)
[2019-10-08] MEDS ORDERED: fentaNYL citrate 100 MCG/2 ML VIAL ONE ×4 (12:05→14:04)
[2019-10-08] MEDS ORDERED: HEPARIN (PORCINE) 1000 UNIT/ML 10 ML (CATH LAB USE ONLY) ONE (12:18)
[2019-10-08] MEDS ORDERED: MIDAZOLAM HCL 1 MG/ML 2ML VIAL ONE ×2 (13:13→14:32)
[2019-10-08] MEDS ORDERED: ALBUTEROL 0.083% NEBU SOLN 3 ML VIAL NEB PRN (15:04)
[2019-10-08] MEDS ORDERED: ACETAMINOPHEN 325 MG TAB PO PRN (15:04)
[2019-10-08] MEDS ORDERED: OXYCODONE/ACETAMINOPHEN 5mg/325mg TAB PO PRN (15:04)
--- NOTE | 2019-10-08 15:12 | Post Anesthesia Assessment ---
Date of Service October 08, 2019 Post Sedation Assessment Vital Signs Pulse Resp BP Pulse Ox 10/08/19 11:20 140 H 20 147/98 H 97 Recovery Score Activity: Moves 4 extremities Respiration: Deep Breath/Cough Circulation: +/-20% PreAnes Value Consciousness: Arouseable (by name) Oxygen Saturation: O2 needed for >90% Discharge Sedation Level of Care: Fast Track Phase II Post Sedation Plan On clinical assessment, the patient appears to have tolerated the sedation without complications. Patient is recovering as anticipated. Patient will continue to be monitored by nursing and may be discharged when sedation discharge criteria are met per below protocol. Upon Completions of procedure up to 15 minutes continue every 5 minute vital signs and the P.A.R. score; then discharge to a Phase I or Fast Track to Phase II per the following guidelines: * Discharge Patient to appropriate Phase II area if PAR is 8 or greater or return to pre- procedure baseline. The post - procedure orders will be as directed. * If PAR score is less than 8 or not return to pre-procedure baseline then patient will follow Phase I monitoring till PAR is reached for Phase II. The Phase I may be done in procedure room or may call to secure a Phase I area. * If naloxone or flumazenil are used for reversal, hold in Phase I for continued monitoring from when last reversal dose was given for a minimum of 60 minutes or longer pending the nurse and/or physician discretion of patient condition before discharge to Phase II. Please call the Sedation Physician to re-evaluate and complete post-note for discharge to Phase II area. Do NOT discharge from procedure sedation or Phase 1 until post- sedation evaluation note is complete by procedure /sedation MD Sedation Discharge Instructions to be given to the patient at discharge to home.
--- NOTE | 2019-10-08 15:17 | Electrophysiology Report ---
Date of Service October 08, 2019 Electrophysiology Procedure Electrophysiology Procedure Report Procedure performed: Ablation of supraventricular tachycardia, 3 dimensional electro anatomical mapping, electrophysiologic testing including pacing from left atrium via the coronary sinus, cardioversion x2 Staff chief enterprise architect: Berry Daniel MD Indication: The patient is a 74-year-old gentleman with a history of atrial flutter and possibly atrial fibrillation who presented an outpatient basis with recurrent tachycardia suggestive atrial flutter. Based on recurrent nature his tachycardia and the associated high rates was felt to be a good candidate for electrophysiologic testing and possible ablation Procedure in detail: Patient was informed of the risks benefits and alternatives to the intended procedure. He understood which proceed. He is taken to the electrophysiology suite in a fasting state. Conscious sedation was administered per protocol patient monitored electrocardiographically throughout today's procedure. The right femoral artery was prepped and draped in usual sterile fashion. This area was anesthetized using subcutaneous menstruation of xylocaine solution. Right femoral vein was accessed 3 times using device under technique. Sheaths were placed over guidewires at this site use facilitate passage of the EP catheters to respective chambers under fluoroscopic guidance. This included right ventricular, coronary sinus and right atrial ablation catheter. The patient baseline tachycardia was characterize. This involved both entrainment maneuvers as well as three-dimensional electro anatomical mapping. Was felt to have isthmus dependent right atrial flutter and linear lesions were subsequently placed through the caval tricuspid isthmus. During ablation the patient did develop atrial fibrillation. Patient underwent cardioversion and before additional studies could be performed he developed another supraventricular tachycardia. Repeat 3 dimensional electro anatomical mapping in a tree maneuvers were performed. An attempt at focal ablation was also made. As this was unsuccessful, pacing maneuvers were employed in order to terminate the tachycardia. These were unsuccessful in the patient underwent a 2nd direct current cardioversion. This returned to a sinus rhythm. Patient's baseline conduction system was characterize prior to removal of the sheaths and catheters. Hemostasis was achieved at the access sites using manual pressure. Patient tolerated procedure well. No immediate complications. Findings: Baseline tachycardia cycle length was 210 milliseconds. Entrainment from the medial portion of the caval tricuspid isthmus revealed concealed entrainment with a short post pacing interval. Three-dimensional electro anatomical mapping revealed presence of the entire tachycardia cycle length in the right atrium wit h a early meets late phenomenon. This suggested typical isthmus dependent right atrial flutter. Ablation: A 3.5 millimeter irrigated tip contact force catheter was advanced to the caval tricuspid isthmus and lesions were placed in a linear fashion. The tachycardia failed to terminate but the patient did develop atrial fibrillation and required cardioversion. Subsequent to cardioversion the patient developed atrial flutter. The tachycardia cycle length was 240 milliseconds. Repeat electro anatomical mapping as well as entrainment maneuvers suggested that this was not a isthmus dependent right atrial flutter. Only a portion of the tachycardia cycle length could be accounted for in the right atrium. There was no early meets late phenomena. The activation pattern in the right atrium proceeded from the high posterior septum to the inferior lateral wall. A relatively early focus was seen in the superior posterior right atrial septum. Entrainment from this site was concealed with a short post pacing interval. Radiofrequency lesion was placed at this site with good big radiation of signal and a drop in impedance but no termination of the tachycardia. Post ablation intervals: Cycle length in the atrium 995 milliseconds Cycle length in the ventricle 998 milliseconds AZ interval 166 milliseconds QRS duration 99 milliseconds QT interval 440 milliseconds AH interval 74 milliseconds HV interval 65 milliseconds The atrial refractory period was 270 milliseconds AV node effective refractory period was less than 270 milliseconds There is no evidence of dual AV ginette physiology Subsequent to the final cardioversion repeat electro anatomical mapping was performed in order to confirm bidirectional block to the caval tricuspid isthmus. Conclusions: Successful creation of bidirectional block to the caval tricuspid isthmus Atrial flutter arising from the left atrium- not ablated Normal baseline intracardiac intervals No evidence of dual AV ginette physiology [facility] Electrophysiology codes EP Procedure 1: Electrophysiology: 60362 EPS and Ablation SVT Procedure 2: Electrophysiology: 26522-88 Comp EPS w/LA pacing Procedure 3: Electrophysiology: 09579 3D mapping PG Moderate Sedation Codes Moderate Sedation Codes Procedure 1: Sedation/Anesthesia: 83083 Mod Sedation by the same physician;Init15 Min Child Age 5 & Up Procedure 2: Sedation/Anesthesia: 26397 Mod Sedation by the same physician; Ea [id number] Minutes
[2019-10-08] MEDS ORDERED: FLUTICASONE FUROATE 200MCG 14 PUFFS/INHALER INH SCH (16:00)
[2019-10-08] MEDS ORDERED: FLECAINIDE ACETATE 100 MG TABLET PO SCH (17:25)
--- NOTE | 2019-10-08 17:29 | Electrocardiogram Report ---
Test Reason : Blood Pressure : / mmHG Vent. Rate : 059 BPM Atrial Rate : 059 BPM P-R Int : 176 ms QRS Dur : 094 ms QT Int : 442 ms P-R-T Axes : 041 -64 -48 degrees QTc Int : 437 ms Sinus bradycardia Left axis deviation T wave abnormality, consider inferolateral ischemia Abnormal ECG When compared with ECG of 24-APR-2019 07:00, Sinus rhythm has replaced Atrial fibrillation Vent. rate has decreased BY 38 BPM Incomplete right bundle branch block is no longer Present T wave inversion now evident in Inferolateral leads Confirmed by Christiano Romero ([id number]) on 10/08/2019 5:28:45 PM Referred By: Ayan Daniel Confirmed By:Christiano Romero
[2019-10-08] MEDS ORDERED: APIXABAN 5 MG TABLET PO SCH (21:00)
[2019-10-08] MEDS ORDERED: METOPROLOL TARTRATE 25 MG TAB PO SCH (21:00)
[2019-10-09] MEDS ORDERED: dilTIAZem ER 120 MG CAPCR PO SCH (09:00)
--- NOTE | 2019-10-10 18:33 | Discharge Summary ---
Date of Service October 08, 2019 Admission HPI Per Admitting Provider Patient with a history of atrial flutter, possibly atypical. Principal Diagnosis q Discharge Exam Groin access site without bleeding or hematoma Discharge Data Allergies Allergy/AdvReac Type Severity Reaction Status Date / Time nickel Allergy Mild Rash Verified 10/06/19 11:20 Sulfa (Sulfonamide AdvReac Intermediate Nausea/Vomi Verified 10/06/19 11:20 Antibiotics) ting Procedures Performed Operation Date: 10/08/19 12:00 Actual Procedures p EPS + Ablation for SVT Flutter - Ayan Daniel MD s LA Pacing (Add-On) - Ayan Daniel MD s 3D Mapping (Carto) - MD ky Alexander Cardioversion - Ayan Daniel MD s Ultrasound Vascular Access - Ayan Daniel MD Ordered Studies 10/08/19 11:45 EP Lab Images for PACS ONCE Hospital Course (1) Atrial flutter with rapid ventricular response: Pt underwent EPS with ablation of typical RA flutter using linear ablation through the CTI. He developed atrial fibrillation and another, atypical, left- sided atrial flutter during the procedure, both of which required cardioversion. Started back on flecainide at the time of discharge Total Time Total Time Spent Total Time Spent (In Minutes): 10 Total Time Includes: Examination of the Patient, Discharge Planning, Medication Reconciliation and Communication With Other Providers Discharge Plan Discharge Items Patient Disposition: Home - Self-Care Reason For Visit: ATRIAL FLUTTER Discharge Diagnosis: Atrial flutter Condition on Discharge: Good Activity: Per Instructions section Activity Comment: No lifting >10# for 5 days Lifting: No more than 10 pounds Bathing Comment: do not soak access site (groin) for 5 days Driving/Machine Use: Resume 1 day after discharge Non-emergency contact: [employer] Teacher Call non-emergency contact if: you have any medication questions and your symptoms worsen Follow-up/Referrals: Cam Connor [Primary Care Provider] - Diet: Heart Healthy Addtl Attending Provider Instructions: begin flecainide 100mg BID Pending Studies at Discharge: No Stand-Alone Forms: My [facility], Smoking Cessation Medications and DC Order Prescriptions: Continued diltiazem HCl 120 mg capsule,extended release 24 hr 120 mg PO DAILY RF: 0 metoprolol tartrate 25 mg tablet 25 mg PO BID RF: 0 fexofenadine [Cris Allergy] 180 mg Tablet 180 mg PO DAILY RF: 0 methylcellulose (laxative) Powder 2 g PO DAILY RF: 0 Ocuvite Adult 50 Plus 250-5-1 mg Capsule 1 cap PO DAILY RF: 0 Eliquis 5 mg tablet 5 mg PO BID RF: 0 albuterol sulfate [Ventolin HFA] 90 mcg/actuation HFA aerosol inhaler 1 puff INHALATION QID PRN (Reason: Wheezing) RF: 0 Flovent HFA 110 mcg/actuation HFA aerosol inhaler 2 puff INHALATION BID RF: 0 No Action flecainide 100 mg tablet 100 mg PO Q12 Qty: 60 RF: 3 Discharge Orders: Discharge Order (Routine); Ordered 10/08/19 Ordered By: Ayan Daniel Admission Data Admit Date/Time: 10/08/19 15:04 Attending Provider: Ayan Daniel Admit Provider: Ayan Daniel Primary Care Provider: Cam Connor Other Interventions: Discharge Summary Assessment (RN) Last Done: 10/08/19 19:05 DC Date/Time DO NOT enter until pt leaves facility: 10/08/19 21:59 Coding Level of Care Code Admit/DC Same Day >8hr Level 1 Diagnoses Atrial flutter with rapid ventricular response I48.92
== END 2019-10-08 21:59 | disposition home or self-care (01) ==
LOC: EP 11:03 → 2S 11:03